=== PATIENT | female | born 1985 | race Two or more races ===

== ENCOUNTER → 2017-02-08 | Outpatient (CLI) | payer OTHER ==
[~2017-02-08] MED LIST: ACET50TA PO; IBUP80TA PO; VITAPRTA PO
--- NOTE | 2017-02-08 11:13 | REP ---
Clinical: Pain. Technique: AP, lateral, bilateral oblique and sunrise views right and left knee. Findings: The osseous structures and joint spaces are intact and normal. There is no evidence for acute fracture or dislocation. No joint effusion is appreciated. Surrounding soft tissues are unremarkable. No subcutaneous emphysema or radiodense foreign body. Impression: Normal, age-appropriate examination of the bilateral knees. No acute fracture or dislocation. No overt degenerative changes. Signed by Elia Cisneros MD 02/08/2017 11:04 A
== END ==
LOC: M RAD 10:32
PROVIDERS: ATTEND Family Medicine
DX: M25.561 Pain in right knee (principal); M25.562 Pain in left knee

== ENCOUNTER → 2017-02-08 | Outpatient (REF) | payer OTHER ==
[2017-02-08 11:47] LABS: FREE T4 0.73 NG/DL (0.76-1.46)
== END ==
LOC: M SFHCPLAZ 09:41
PROVIDERS: ATTEND Family Medicine
DX: M25.50 Pain in unspecified joint (principal); R63.5 Abnormal weight gain

== ENCOUNTER → 2017-03-01 | Outpatient (REF) | payer OTHER | LOC: M SFHCPLAZ 10:56 | PROVIDERS: ATTEND Family Medicine | DX: Z12.4 Encounter for screening for malignant neoplasm of cervix (principal) ==

== ENCOUNTER → 2017-03-06 | Outpatient (CLI) | payer OTHER ==
--- NOTE | 2017-03-07 02:41 | REP ---
Clinical: Soft tissue nodule. Technique: AP, lateral right tibia / fibula. Findings: The osseous structures and joint spaces are intact and normal. There is no evidence for acute fracture or dislocation. Surrounding soft tissues are unremarkable. No subcutaneous emphysema or radiodense foreign body. Impression: Normal examination. Signed by Elia Cisneros MD 03/07/2017 02:33 A
== END ==
LOC: M RAD 11:10
PROVIDERS: ATTEND Family Medicine
DX: L98.9 Disorder of the skin and subcutaneous tissue, unspecified (principal)

== ENCOUNTER → 2017-03-26 | Outpatient (CLI) | payer OTHER | LOC: M LAB 09:02 | PROVIDERS: ATTEND Family Medicine | DX: E03.9 Hypothyroidism, unspecified (principal) ==

== ENCOUNTER → 2017-05-17 | Outpatient (REF) | payer OTHER | LOC: M SFHCPLAZ 08:52 | PROVIDERS: ATTEND Family Medicine | DX: E03.9 Hypothyroidism, unspecified (principal) ==

== ENCOUNTER → 2017-05-19 | Outpatient (REF) | payer OTHER | LOC: M SFHCPLAZ 15:40 | PROVIDERS: ATTEND Family Medicine | DX: E03.9 Hypothyroidism, unspecified (principal) ==

== ENCOUNTER → 2017-08-03 | Outpatient (CLI) | payer OTHER ==
--- NOTE | 2017-08-03 14:35 | REP ---
Pelvic ultrasound including transabdominal and endovaginal ultrasound: The bladder is nondistended. The uterus is anteverted and normal size measuring 7.4-0.5 x 5.1 cm. The endometrium is not thickened measuring 2.9-9.2 mm. With the in the endometrium. There is a focal hypoechoic sharply circumscribed nodule like structure measuring 0.9 x 0.5 x 1.0 cm compatible with an endometrial polyp. This is in the body of the uterus. The right ovary measures 2.6 x 1.3 x 2.4 cm. The left ovary measures 2.7 x 3.4 x 2.3 cm. The ovaries are normal size. There is a 2.1 cm left ovarian cyst. Impression: There is a hypoechoic nodule like density in the endometrium, possibly an endometrial polyp in the body of the uterus. There is a 2.1 cm left ovarian cyst.
== END ==
LOC: M WHC 10:53
PROVIDERS: ATTEND Family Medicine
DX: N83.202 Unspecified ovarian cyst, left side (principal)

== ENCOUNTER → 2017-08-07 | Outpatient (REF) | payer OTHER | LOC: M LAB REF 13:19 | PROVIDERS: ATTEND Family Medicine | DX: L81.9 Disorder of pigmentation, unspecified (principal) ==

== ENCOUNTER → 2017-09-07 | Outpatient (CLI) | payer OTHER | LOC: M SLEEP HO 11:21 | PROVIDERS: ATTEND Nurse Practitioner Adult Health | DX: G47.30 Sleep apnea, unspecified (principal) ==

== ENCOUNTER → 2018-05-09 | Outpatient (REF) | payer OTHER ==
[2018-05-09 12:00] LABS: HEMATOCRIT 44.1 % (36.0-47.0); HEMOGLOBIN 14.6 g/dl (12.0-15.5); MEAN CORPUSCULAR HEMOGLOBIN 27.7 pg (27.0-33.0); MEAN CORPUSCULAR HGB CONC 33.1 g/dl (32.0-36.5); MEAN CORPUSCULAR VOLUME 83.7 fl (80.0-96.0); PLATELET COUNT, AUTOMATED 322 10^3/uL (150-450); RED BLOOD COUNT 5.27 10^6/uL (4.00-5.40); RED CELL DISTRIBUTION WIDTH 13.2 % (11.5-14.5); WHITE BLOOD COUNT 8.6 10^3/uL (4.0-10.0)
[2018-05-09 12:20] LABS: C REACTIVE PROTEIN QUANTITATIV < 0.30 MG/DL (0.00-0.30); FREE T4 1.38 NG/DL (0.76-1.46); THYROID STIMULATING HORMONE 0.009 uIU/ML (0.358-3.740)
[2018-05-09 13:11] LABS: ERYTHROCYTE SEDIMENTATION RATE 4 mm/hr (0-20)
[2018-05-09 14:18] LABS: ERYTHROCYTE SEDIMENTATION RATE 4 mm/hr (0-20)
== END ==
LOC: M SFHCPLAZ 09:23
DX: K64.4 Residual hemorrhoidal skin tags (principal); E03.9 Hypothyroidism, unspecified

== ENCOUNTER → 2018-08-28 | Outpatient (REF) | payer OTHER | LOC: M SFHCPLAZ 16:12 | DX: Z53.9 Procedure and treatment not carried out, unspecified reason (principal); E03.9 Hypothyroidism, unspecified; E55.9 Vitamin D deficiency, unspecified; K58.0 Irritable bowel syndrome with diarrhea ==

== ENCOUNTER → 2018-09-03 | Outpatient (REF) | payer OTHER ==
[2018-09-03 12:45] LABS: FREE T4 1.26 NG/DL (0.76-1.46); THYROID STIMULATING HORMONE 0.014 uIU/ML (0.358-3.740)
[2018-09-05 00:06] LABS: DEAMIDATED GLIADIN ABS, IgA 4 units (0-19); DEAMIDATED GLIADIN ABS, IgG 2 units (0-19); ENDOMYSIAL ANTIBODY IgA Negative (Negative); IMMUNOGLOBULIN A 177 mg/dL (87-352); t-TRANSGLUTAMINASE(tTG) IgA <2 U/mL (0-3); t-TRANSGLUTAMINASE(tTG) IgG <2 U/mL (0-5)
== END ==
LOC: M SFHCPLAZ 10:04
DX: E03.9 Hypothyroidism, unspecified (principal); E55.9 Vitamin D deficiency, unspecified; K58.0 Irritable bowel syndrome with diarrhea
CPT/HCPCS: 84443

== ENCOUNTER → 2018-10-29 | Outpatient (REF) | payer OTHER ==
[~2018-10-29] MED LIST changes: -ACET50TA PO; +MAPA500T2 PO
[2018-10-29 10:18] LABS: FREE T4 1.23 NG/DL (0.76-1.46); THYROID STIMULATING HORMONE 0.017 uIU/ML (0.358-3.740)
== END ==
LOC: M SFHCPLAZ 08:39
PROVIDERS: ATTEND Family Medicine
DX: E03.9 Hypothyroidism, unspecified (principal)

== ENCOUNTER → 2018-12-17 | Outpatient (REF) | payer MEDICAID | LOC: M SFHCPLAZ 15:29 | PROVIDERS: ATTEND Family Medicine | DX: E03.9 Hypothyroidism, unspecified (principal) ==

== ENCOUNTER → 2019-02-04 | Outpatient (REF) | payer MEDICAID | LOC: M SFHCPLAZ 09:11 | PROVIDERS: ATTEND Family Medicine | DX: E03.9 Hypothyroidism, unspecified (principal) ==

== ENCOUNTER → 2019-04-22 | Outpatient (REF) | payer OTHER | LOC: M SFHCPLAZ 08:25 | PROVIDERS: ATTEND Family Medicine | DX: E03.9 Hypothyroidism, unspecified (principal) ==

== ENCOUNTER → 2019-07-24 | Outpatient (REF) | payer OTHER | LOC: M SFHCPLAZ 11:10 | PROVIDERS: ATTEND Family Medicine | DX: E03.9 Hypothyroidism, unspecified (principal) ==

== ENCOUNTER → 2019-10-08 | Outpatient (CLI) | payer BC ==
[2019-10-08 14:05] LABS: FREE T4 0.93 NG/DL (0.76-1.46); THYROID STIMULATING HORMONE 5.76 uIU/ML (0.358-3.740)
== END ==
LOC: M PLALAB 10:15
PROVIDERS: ATTEND Family Medicine
DX: E03.9 Hypothyroidism, unspecified (principal)

== ENCOUNTER → 2020-01-29 | Outpatient (REF) | payer BC ==
[2020-01-29 15:52] LABS: FREE T4 1.1 NG/DL (0.76-1.46); THYROID STIMULATING HORMONE 6.95 uIU/ML (0.358-3.740)
== END ==
LOC: M PLALAB 13:14
PROVIDERS: ATTEND Family Medicine
DX: E03.9 Hypothyroidism, unspecified (principal)

== ENCOUNTER → 2020-07-30 | Outpatient (REF) | payer BC | LOC: M PLALAB 10:32 | PROVIDERS: ATTEND Family Medicine | DX: E03.9 Hypothyroidism, unspecified (principal) ==

== ENCOUNTER → 2020-10-01 | Outpatient (REF) | payer BC ==
[2020-10-01 15:58] LABS: FREE T4 1.43 NG/DL (0.76-1.46); THYROID STIMULATING HORMONE 2.77 uIU/ML (0.358-3.740)
== END ==
LOC: M SFHCPLAZ 11:44
PROVIDERS: ATTEND Family Medicine
DX: N92.3 Ovulation bleeding (principal)

== ENCOUNTER → 2020-10-06 | Outpatient (CLI) | payer BC ==
--- NOTE | 2020-10-06 21:17 | REP ---
INDICATION: N92.3 INTERMENSTRUAL BLEEDING COMPARISON: None. TECHNIQUE: Transabdominal pelvic ultrasound followed by transvaginal examination for better evaluation of the endometrium and adnexa with color Doppler evaluation of the ovaries. FINDINGS: Bladder is unremarkable and measures 7.5 x 7.8 x 5.7 cm. Normal anteverted uterus measures 7.4 x 3.6 x 4.4 cm. The endometrial complex measures 5.0 mm thickness. No discrete uterine or endometrial abnormalities are appreciated. Bilateral ovaries are normal in appearance and vascularity without evidence for torsion. Right ovary measures 2.5 x 1.5 x 1.7 cm; R I = 0.39. Left ovary measures 2.5 x 1.9 x 1.9 cm with 1.3 cm dominant follicle/physiologic cyst; R I = 0.47. No pelvic fluid or adnexal mass lesion IMPRESSION: Essentially normal pelvic ultrasound. 1.3 cm left dominant follicle noted. No torsion. <Electronically signed by Elia Cisneros > 10/06/20 [id number]
== END ==
LOC: M WHC 12:51
PROVIDERS: ATTEND Family Medicine
DX: N92.3 Ovulation bleeding (principal)

== ENCOUNTER → 2020-11-06 | Outpatient (REF) | payer BC ==
[2020-11-06 19:57] LABS: CHLAMYDIA DNA AMPLIFICATION NEGATIVE (NEGATIVE); GC DNA AMPLIFICATION NEGATIVE (NEGATIVE)
== END ==
LOC: M SFHCWAGY 16:43
PROVIDERS: ATTEND Nurse Practitioner Women's Health
DX: Z12.4 Encounter for screening for malignant neoplasm of cervix (principal); Z11.3 Encounter for screening for infections with a predominantly sexual mode of transmission
CPT/HCPCS: 87491; 87591; 87624; G0123

== ENCOUNTER → 2020-12-10 | Outpatient (REF) | payer BC ==
[2020-12-10 13:09] LABS: THYROID STIMULATING HORMONE 4.72 uIU/ML (0.358-3.740)
== END ==
LOC: M PLALAB 10:08
PROVIDERS: ATTEND Family Medicine
DX: E03.9 Hypothyroidism, unspecified (principal)

== ENCOUNTER → 2021-02-08 | Outpatient (REF) | payer BC ==
[2021-02-08 10:39] LABS: FREE T4 1.05 NG/DL (0.76-1.46); THYROID STIMULATING HORMONE 2.06 uIU/ML (0.358-3.740)
== END ==
LOC: M PLALAB 08:45
PROVIDERS: ATTEND Family Medicine
DX: E03.9 Hypothyroidism, unspecified (principal)

== ENCOUNTER → 2021-04-06 | Outpatient (CLI) | payer BC ==
[~2021-04-06] MED LIST changes: +KETO10TAB PO; +MACR100C43 PO; +NOXI1TAB PO; +SPIR50TA4 PO; +SYNT100T PO
== END ==
LOC: M PLALAB 13:50
PROVIDERS: ATTEND Family Medicine
DX: E03.9 Hypothyroidism, unspecified (principal)

== ENCOUNTER → 2021-05-10 | Outpatient (REF) | payer BC ==
[~2021-05-10] MED LIST changes: -KETO10TAB PO; -MACR100C43 PO; -NOXI1TAB PO; -SPIR50TA4 PO; -SYNT100T PO
== END ==
LOC: M SFHCWAGY 12:59
PROVIDERS: ATTEND Nurse Practitioner Women's Health
DX: N93.9 Abnormal uterine and vaginal bleeding, unspecified (principal)

== ENCOUNTER 2021-07-24 05:18 | Emergency (ER) | payer BC ==
[~2021-07-24] VITALS: Ht 165.1 cm; Wt 71.8 kg
[2021-07-24] MEDS ORDERED: NOXI1TAB PO (05:28)
[2021-07-24] MEDS ORDERED: SPIR50TA4 PO (05:28)
[2021-07-24] MEDS ORDERED: SYNT100T PO (05:28)
--- OUTSIDE RECORDS SUMMARY | 2021-07-24 05:28 | CCD ---
Author Author [facility] Organization [facility] Address Unknown Phone Unavailable Care Team Providers Care Stratigraphy Teacher Name Role Phone Casi Resendez Unavailable PROBLEMS Type Condition ICD9-CM Code DSK23-XJ Code Onset Dates Condition S tatus W/U Status Risk SNOMED Code Notes Problem Lactose intolerance E73.9 Active confirmed 961983644 Problem Hypothyroidism, unspecified type E03.9 Active conf irmed 30728827 Problem Seasonal allergies J30.2 Active confirmed 4 89309894 Problem Abnormal uterine bleeding N93.9 Active confirmed 97039432319689 Problem Irritable bowel syndrome with diarrhea K58.0 A ctive confirmed 909896315 Problem Vitamin D deficiency E55.9 Active confirmed 02723337 Problem Cigarette nicotine dependence without complication F17.210 Active confirmed 40247173 Problem Psychophysiological insomnia F51.04 Active confirme d 895660793 ALLERGIES No Known Allergies ENCOUNTERS from 1986 to 2021-04-28 Encounter Location Date Provider Diagnosis [address] [phone] [place] [address] 04 Apr, 2021 Casi Resendez IMMUNIZATIONS Vaccine Route Administration Date Status TDAP Unknown November 23, 2013 Administered Influenza 6mo & up Fluzone Unknown Jul 20, 2017 Refus ed SOCIAL HISTORY Tobacco Use: Social History Observation Description Date Details (start date - stop date) Current Smoker Sex Assigned At : Social History Observation Description Sex Assigned At Unknown Education: Question Answer Notes Level of Education: Finished High School Audit Question Answer Notes Interpretation: Alcohol Education Total Score: 0 Language: Question Answer Notes Languages spoken: Solomon Islander Yazdanism: Question Answer Notes Yazdanism 33 None Domestic Violence: Question Answer Notes Status: Sexual Hx: Question Answer Notes Had sex in the last 12 months (vaginal, oral, or anal)? Yes LMP: 02/07/2017 Have you ever had an STD? No Prevention Strategies discussed: Condoms with Men only Use protection? Yes How often? All of the time Drug and Alcohol Question Answer Notes Interpretation: No problems reported Total Score: 0 Alcohol Screening: Question Answer Notes Did you have a drink containing alcohol in the past year? Ye s Points 1 Interpretation Negative How often did you have six or more drinks on one occas ion in the past year? Never (0 points) How many drinks did you have on a typica l day when you were drinking in the past year? 1 or 2 (0 points) How often did you have a drink containing alcohol in t he past year? Monthly or less (1 point) BMI Care Goal Follow-Up Question Answer Notes Above Normal BMI Follow-Up Giving encouragement to exercise Tobacco Use: Question Answer Notes Are you a: current smoker Smoking Cessation Information Given 07/31/2019 Patient counseled on the dangers of tobacco use and urged to quit: 07/31/2019 How many cigarettes a day do you smoke? 6-10 Are you interested in quitting? Ready to quit Counseled the patient on tobacco use, cessation provided 02/2019 REASON FOR REFERRAL No Information VITAL SIGNS No information MEDICATIONS Medication SIG (Take, Route, Frequency, Duration) Notes Start Da te End Date Status Tretinoin 0.1 % 1 application (pea sized florina unt) in the evening Externally Once a day for 30 days Aug, Active Euthyrox 100 MCG 1 tablet in the morning on a n empty stomach Orally Once a day; CELIA for 90 day(s) Mar, Active Loperamide HCl 2 MG 1 tablet as needed Orally Daily for 30 Days Mar, Active Vitamin D 2000 UNIT 1 tablet Orally Once a day Active Levocetirizine Dihydrochloride 5 MG 1 tablet in the evening Oral ly Once a day Jul, Not-Taking Clindamycin Phosphate 1 % 1 application to face General Forecaster ally Once a day for 30 Days Aug, Not-Taking valACYclovir HCl 1 GM 2 tablet twice a day x 1 day as needed for cold sores Orally bid for 5 day(s) Jul, Active Chantix Continuing Month Frederic 1 MG as directed Orally 12 2020 Active Chantix Starting Month Frederic 0.5 MG X 11 & 1 MG X 42 as directed i ntravaginally Mar, Active PROCEDURES No Information RESULTS No Results REASON FOR VISIT synthroid MEDICAL (GENERAL) HISTORY Type Description Date Medical History Epilepsy in childhood - last seizure at age 3; she was dilantin until she was 9 y/o Medical History Hypothyroidism Medical History [employer] Medical History IBS, lactose intolerance Medical History Daytime fatigue - negative sleep study Surgical History T & A 1993 Surgical History T&A 1994 Hospitalization History Surgery related 1994 Hospitalization History Childbirth 2015 Goals Section No Information Health Concerns No Information MEDICAL EQUIPMENT No Information MENTAL STATUS No Information FUNCTIONAL STATUS No Information ASSESSMENTS No Information PLAN OF TREATMENT Next Appt Details Provider Name:Shantel Millerjac, 2021-05-10 09:45:00 AM, [address] [place] [address] , [place], [address], Provider Name:Maci Billings, 2021-05-17 11:00:00 AM, [address] [place] [address] , [place], [place], [facility] [phone] Provider Name:Casi Resendez, 2021-11-15 07:30:00 AM, [address] [place] [address] , [place], [address], Insurance Providers Payer Name Payer Address Payer Phone Insured Name Patient Relati onship to Insured Coverage Start Date Coverage End Date BCBS UTILIBBY CARTWRIGHT PPO [phone] [facility] [employer] CHRISTEL CARMICHAEL [place] [phone] KARLEY AMARAL self
--- OUTSIDE RECORDS SUMMARY | 2021-07-24 05:28 | CCD ---
Author Author [facility] Organization [facility] Address Unknown Phone Unavailable Care Team Providers Care Room Designer Name Role Phone Casi Resendez Unavailable PROBLEMS Type Condition ICD9-CM Code QCE11-QJ Code Onset Dates Condition S tatus W/U Status Risk SNOMED Code Notes Problem Lactose intolerance E73.9 Active confirmed 463901098 Problem Hypothyroidism, unspecified type E03.9 Active conf irmed 01843873 Problem Irritable bowel syndrome with diarrhea K58.0 A ctive confirmed 970410221 Problem Abnormal uterine bleeding N93.9 Active confirmed 08170583965438 Problem Abnormal uterine bleeding (AUB) N93.9 Active confirmed 50200041096145 Problem Vitamin D deficiency E55.9 Active confirmed 85380259 Problem Cigarette nicotine dependence without complication F17.210 Active confirmed 70114930 Problem Psychophysiological insomnia F51.04 Active confirme d 881083618 Problem Seasonal allergies J30.2 Active confirmed 4 52869827 ALLERGIES No Known Allergies ENCOUNTERS from 1986 to 2021-05-19 Encounter Location Date Provider Diagnosis [address] [phone] [place] [address] Apr, Casi Resendez IMMUNIZATIONS Vaccine Route Administration Date [...] Finished High School Audit Question Answer Notes Total Score: 0 Interpretation: Alcohol Education Language: Question Answer Notes Languages spoken: Nauruan Congregational: Question Answer Notes Congregational 33 None Domestic Violence: Question Answer Notes Status: Sexual Hx: Question Answer Notes Had sex in the last 12 months (vaginal, oral, or anal)? Yes LMP: 02/07/2017 Have you ever had an STD? No Prevention Strategies discussed: Condoms with Men only Use protection? Yes How often? All of the time Drug and Alcohol Question Answer Notes Total Score: 0 Interpretation: No problems reported Alcohol Screening: Question Answer Notes Did you [...] Notes Start Da te End Date Status Spironolactone 50 MG 1 tablet Orally Once a day for 30 day(s) Apr, Active Loperamide HCl 2 MG 1 tablet as needed Orally Daily for 30 Days Mar, Active Euthyrox 100 MCG 1 tablet in the morning on a n empty stomach Orally Once a day; CELIA for 90 day(s) Mar, Active Levocetirizine Dihydrochloride 5 MG 1 tablet in the evening Oral ly Once a day Jul, Not-Taking Clindamycin Phosphate 1 % 1 application to face Dobie Man ally Once a day for 30 Days Aug, Not-Taking Chantix Starting Month Frederic 0.5 MG X 11 & 1 MG X 42 as directed i ntravaginally Mar, Active Tretinoin 0.1 % 1 application (pea sized florina unt) in the evening Externally Once a day Aug, Active valACYclovir HCl 1 GM 2 tablet twice a day x 1 day as needed for cold sores Orally bid for 5 day(s) Jul, Active Vitamin D 2000 UNIT 1 tablet Orally Once a day Active Chantix Continuing Month Frederic 1 MG as directed Orally 2020 Active PROCEDURES No Information RESULTS No Results [...] History Surgery related 1994 Hospitalization History Childbirth 2014 Goals Section No Information Health Concerns No Information MEDICAL EQUIPMENT No Information MENTAL STATUS No Information FUNCTIONAL STATUS No Information ASSESSMENTS No Information PLAN OF TREATMENT Medication Medication Name Sig Start Date Stop Date Tretinoin 0.1 % 1 application (pea sized florina unt) in the evening Externally Once a day Aug, Spironolactone 50 MG 1 tablet Orally Once a day for 30 day(s) Apr, Next Appt Details Provider Name:Maci Billings, 2021-09-06 11:30:00 AM, [address] [place] [address], , [place], [address], Provider Name:Casi Resendez, 2021-11-15 07:30:00 AM, [facility] [place] [place], , [place], [address], Insurance Providers Payer Name Payer Address Payer Phone Insured Name Patient Relati onship to Insured Coverage Start Date Coverage End Date BCBS [place] WATN PPO [phone] [facility] [employer] [place] [address] KARLEY AMARAL self
--- OUTSIDE RECORDS SUMMARY | 2021-07-24 05:28 | CCD ---
Author Author [facility] Organization [facility] Address Unknown Phone Unavailable Care Team Providers Care Radiology Aide Name Role Phone Casi Resendez Unavailable PROBLEMS Type Condition ICD9-CM Code NGA56-CO Code Onset Dates Condition S tatus W/U Status Risk SNOMED Code Notes Problem Lactose intolerance E73.9 Active confirmed 478160548 Problem Hypothyroidism, unspecified type E03.9 Active conf irmed 98754948 Problem Irritable bowel syndrome with diarrhea K58.0 A ctive confirmed 862970686 Problem Abnormal uterine bleeding N93.9 Active confirmed 07494418241403 Problem Abnormal uterine bleeding (AUB) N93.9 Active confirmed 13957090493810 Problem Vitamin D deficiency E55.9 Active confirmed 56767124 Problem Cigarette nicotine dependence without complication F17.210 Active confirmed 06737989 Problem Psychophysiological insomnia F51.04 Active confirme d 245050346 Problem Seasonal allergies J30.2 Active confirmed 4 42673973 ALLERGIES No Known Allergies ENCOUNTERS from 1986 to 2021-06-02 Encounter Location Date Provider Diagnosis [address] [phone] [place] [address] 08 May, 2021 Casi Resendez IMMUNIZATIONS Vaccine Route Administration [...] Education Language: Question Answer Notes Languages spoken: Macedonian Nondenominational: Question Answer Notes Nondenominational 33 None Domestic Violence: Question Answer Notes [...] day; CELIA for 90 day(s) Mar, Active Synthroid 100 MCG 1 tablet in the morning on a n empty stomach Orally Once a day; CELIA for 90 day(s) May, Active Levocetirizine Dihydrochloride 5 MG 1 tablet in the evening Oral ly Once a day Jul, Not-Taking Clindamycin Phosphate 1 % 1 application to face Customer Care Voice Consultant ally Once a day for 30 Days [...] Frederic 1 MG as directed Orally 12 Ju 2020 Active PROCEDURES No Information RESULTS No [...] Once a day for 30 day(s) Apr, Synthroid 100 MCG 1 tablet in the morning on a n empty stomach Orally Once a day; CELIA for 90 day(s) May, Next Appt Details Provider Name:Maci Billings, 2021-09-06 11:30:00 AM, [address] [facility], , [place], [address], Provider Name:Casi Resendez, 2021-11-15 07:30:00 AM, [address] [facility], , [place], [address], Insurance Providers Payer Name Payer Address Payer Phone Insured Name Patient Relati onship to Insured Coverage Start Date Coverage End Date BCBILL CARTWRIGHT PPO [phone] [facility] eigital [facility] CHRISTEL CARMICHAEL [facility] [id number] KARLEY AMARAL self
--- OUTSIDE RECORDS SUMMARY | 2021-07-24 05:28 | CCD ---
Author Author [facility] Organization [facility] Address Unknown Phone Unavailable Care Team Providers Care Rack Maker Name Role Phone Maci Billings Unavailable PROBLEMS Type Condition ICD9-CM Code KMI90-WG Code Onset Dates Condition S tatus W/U Status Risk SNOMED Code Notes Problem Lactose intolerance E73.9 Active confirmed 850835643 Problem Hypothyroidism, unspecified type E03.9 Active conf irmed 35789122 Problem Irritable bowel syndrome with diarrhea K58.0 A ctive confirmed 068500249 Problem Abnormal uterine bleeding N93.9 Active confirmed 13191344141519 Problem Abnormal uterine bleeding (AUB) N93.9 Active confirmed 92478856680662 Problem Vitamin D deficiency E55.9 Active confirmed 62834158 Problem Cigarette nicotine dependence without complication F17.210 Active confirmed 06206975 Problem Psychophysiological insomnia F51.04 Active confirme d 409310764 Problem Seasonal allergies J30.2 Active confirmed 4 16247958 ALLERGIES No Known Allergies ENCOUNTERS from 1986 to 2021-05-19 Encounter [facility] Date [facility] [address] [facility] [place] [address] Apr, Maci Billings Acne vulgaris L70.0 IMMUNIZATIONS Vaccine Route Administration Date Status TDAP [...] Education Language: Question Answer Notes Languages spoken: Luxembourger Synagogue: Question Answer Notes Synagogue 33 None Domestic Violence: Question Answer Notes [...] REASON FOR REFERRAL No Information VITAL SIGNS Weight 160.4 lbs Apr, Weight-kg 72.76 kg Apr, Height 64 in Apr, BMI 27.53 kg/m2 Apr, Blood pressure systolic 116 mm Hg Apr, Blood pressure diastolic 80 mm Hg Apr, MEDICATIONS Medication SIG (Take, Route, Frequency, Duration) [...] Phosphate 1 % 1 application to face Scarf Gluer ally Once a day for 30 Days [...] Information RESULTS No Results REASON FOR VISIT 6-8 Month acne follow up MEDICAL (GENERAL) HISTORY Type Description Date Medical [...] No Information FUNCTIONAL STATUS No Information ASSESSMENTS Encounter Date Diagnosis Assessment Notes Treatment Notes Treatm ent Clinical Notes Apr, Acne vulgaris (ICD-10 - L70.0) Spironolactone risks. Patient counseled about risks of therapy with spironolactone, including frequent urination, unsteadiness, headache, enlarged or painful breasts , irregular menstrual periods, vaginal bleeding in post- menopausal women, hyperkalemia. Patient does not have any underlying kidney disorders. Patient was informed that spironolactone is category C and has the potential for adversely affecting sex differentiation of the male during embryogenesis. PLAN OF TREATMENT Medication Medication Name Sig Start Date Stop Date Tretinoin 0.1 % 1 application (pea sized florina unt) in the evening Externally Once a day Aug, Spironolactone 50 MG 1 tablet Orally Once a day for 30 day(s) Apr, Treatment Notes Assessment Notes Clinical Notes Acne vulgaris Spironolactone risks . Patient counseled about risks of therapy with spironolactone, including frequent urination, unsteadiness, headache, enlarged or painful breasts , irregular menstrual periods, vaginal bleeding in post-menopausal women, hyperkalemia. Patient does not have any underlying kidney disorders. Patient was informed that spironolactone is category C and has the potential for adversely affecting sex differentiation of the male during embryogenesis. Next Appt Details 3-6 Months Reason:oily skin/acne f/u Provider Name:Maci Billings, 2021-09-06 11:30:00 AM, [address] [facility], , [place], [address], Provider Name:Casi Resendez, 2021-11-15 07:30:00 AM, [facility] [facility], , [place], [address], Follow Up:3-6 Monthsoily skin/acne f/u Insurance Providers Payer Name Payer Address Payer Phone Insured Name Patient Relati onship to Insured Coverage Start Date Coverage End Date [facility] [phone] [facility] [place] [address] KARLEY AMARAL self
--- OUTSIDE RECORDS SUMMARY | 2021-07-24 05:28 | CCD ---
Author Author [facility] Organization [facility] Address Unknown Phone Unavailable Care Team Providers Care Shop Laborer Name Role Phone Shantel Thomson Unavailable PROBLEMS Type Condition ICD9-CM Code MIX40-SV Code Onset Dates Condition S tatus W/U Status Risk SNOMED Code Notes Problem Lactose intolerance E73.9 Active confirmed 631300416 Problem Hypothyroidism, unspecified type E03.9 Active conf irmed 82361216 Problem Irritable bowel syndrome with diarrhea K58.0 A ctive confirmed 638136612 Problem Abnormal uterine bleeding N93.9 Active confirmed 10111334593195 Problem Abnormal uterine bleeding (AUB) N93.9 Active confirmed 06905150209703 Problem Vitamin D deficiency E55.9 Active confirmed 08662289 Problem Cigarette nicotine dependence without complication F17.210 Active confirmed 13293676 Problem Psychophysiological insomnia F51.04 Active confirme d 526801911 Problem Seasonal allergies J30.2 Active confirmed 4 18197780 ALLERGIES No Known Allergies ENCOUNTERS from 1986 to 2021-05-11 Encounter Location Date Provider Diagnosis [facility] [address] [facility] [phone] [place] [address] 16 Apr, 2021 Shantel Thomson Abnormal uterine ble eding (AUB) N93.9 and Negative test Z32.02 IMMUNIZATIONS Vaccine Route Administration Date Status TDAP [...] Education Language: Question Answer Notes Languages spoken: Azeri Adventist: Question Answer Notes Adventist 33 None Domestic Violence: Question Answer Notes [...] FOR REFERRAL No Information VITAL SIGNS Weight 156 lbs Apr, Weight-kg 70.76 kg Apr, Height 64 in Apr, BMI 26.77 kg/m2 Apr, Blood pressure systolic 118 mm Hg Apr, Blood pressure diastolic 82 mm Hg Apr, MEDICATIONS Medication SIG (Take, Route, Frequency, Duration) Notes Start Da te End Date Status Vitamin D 2000 UNIT 1 tablet Orally Once a day Active Euthyrox 100 MCG 1 tablet in the morning on a n empty stomach Orally Once a day; CELIA for 90 day(s) Mar, Active Clindamycin Phosphate 1 % 1 application to face Quarry Boss ally Once a day for 30 Days Aug, Not-Taking Tretinoin 0.1 % 1 application (pea sized florina unt) in the evening Externally Once a day for 30 days Aug, Active Loperamide HCl 2 MG 1 tablet as needed Orally Daily for 30 Days Mar, Active Chantix Continuing Month Frederic 1 MG as directed Orally 2020 Active Chantix Starting Month Frederic 0.5 MG X 11 & 1 MG X 42 as directed i ntravaginally Mar, Active valACYclovir HCl 1 GM 2 tablet twice a day x 1 day as needed for cold sores Orally bid for 5 day(s) Jul, Active Levocetirizine Dihydrochloride 5 MG 1 tablet in the evening Oral ly Once a day Jul, Not-Taking PROCEDURES No Information RESULTS No Results REASON FOR VISIT uterine biospy MEDICAL (GENERAL) HISTORY Type Description Date Medical [...] Treatment Notes Treatm ent Clinical Notes Apr, Abnormal uterine bleeding (AUB) (ICD-10 - N93.9) Apr, Negative test (ICD-10 - Z32.02) PLAN OF TREATMENT Treatment Notes Test Name Order Date Test, Urine 2021-05-10 Pathology Request For Service 2021-05-10 Next Appt Details prn Reason:f/u per pathology Provider Name:Maci Billings, 2021-05-17 11:00:00 AM, [address] [facility], , [place], [address], Provider Name:Casi Resendez, 2021-11-15 07:30:00 AM, [address] [facility], , [place], [address], Follow Up:prnf/u per pathology Insurance Providers Payer Name Payer Address Payer Phone Insured Name Patient Relati onship to Insured Coverage Start Date Coverage End Date MARIELA CARTWRIGHT O [phone] [place]IBBY [place] [id number] KARLEY AMARAL self
--- OUTSIDE RECORDS SUMMARY | 2021-07-24 05:28 | CCD ---
Author Author [facility] Organization [facility] Address Unknown Phone Unavailable Care Team Providers Care Maintenance Controller Name Role Phone Shantel Thomson Unavailable PROBLEMS Type Condition ICD9-CM Code [id number]-NS Code Onset Dates Condition S tatus W/U Status Risk SNOMED Code Notes Problem Lactose intolerance E73.9 Active confirmed 563829805 Problem Hypothyroidism, unspecified type E03.9 Active conf irmed 77356045 Problem Irritable bowel syndrome with diarrhea K58.0 A ctive confirmed 400262216 Problem Abnormal uterine bleeding N93.9 Active confirmed 16074579070628 Problem Abnormal uterine bleeding (AUB) N93.9 Active confirmed 34609619456287 Problem Vitamin D deficiency E55.9 Active confirmed 03423465 Problem Cigarette nicotine dependence without complication F17.210 Active confirmed 51886321 Problem Psychophysiological insomnia F51.04 Active confirme d 221109489 Problem Seasonal allergies J30.2 Active confirmed 4 [id number] ALLERGIES No Known Allergies ENCOUNTERS from 1986 to 2021-05-20 Encounter Location Date Provider Diagnosis [facility] [address] [facility] [phone] [place] [address] Apr, Shantel Thomson IMMUNIZATIONS Vaccine Route Administration Date Status TDAP [...] Education Language: Question Answer Notes Languages spoken: Estonian Alevism: Question Answer Notes Alevism 33 None Domestic Violence: Question Answer Notes [...] Phosphate 1 % 1 application to face Client Advisor ally Once a day for 30 Days [...] Information RESULTS No Results REASON FOR VISIT negative results MEDICAL (GENERAL) HISTORY Type Description Date Medical [...] Provider Name:Maci Billings, 2021-09-06 11:30:00 AM, [address] [facility], , [place], [place], [facility] [phone] Provider Name:Casi Resendez, 2021-11-15 07:30:00 AM, [address] [facility] [phone], [place], [address] Insurance Providers Payer Name Payer Address Payer Phone Insured Name Patient Relati onship to Insured Coverage Start Date Coverage End Date BCBS [place] [facility] [phone] [id number] [place] [address] KARLEY AMARAL self
--- OUTSIDE RECORDS SUMMARY | 2021-07-24 05:28 | CCD ---
Author Author [facility] Organization [facility] Address Unknown Phone Unavailable Care Team Providers Care Hospital Educator Name Role Phone Berto Shantel Unavailable PROBLEMS Type Condition ICD9-CM Code [id number] Code Onset Dates Condition S tatus W/U Status Risk SNOMED Code Notes Problem Lactose intolerance E73.9 Active confirmed 761374917 Problem Hypothyroidism, unspecified type E03.9 Active conf irmed 42185600 Problem Seasonal allergies J30.2 Active confirmed 4 27514446 Problem Abnormal uterine bleeding N93.9 Active confirmed 91383487738968 Problem Irritable bowel syndrome with diarrhea K58.0 A ctive confirmed 477473330 Problem Vitamin D deficiency E55.9 Active confirmed 53144310 Problem Cigarette nicotine dependence without complication F17.210 Active confirmed 22750624 Problem Psychophysiological insomnia F51.04 Active confirme d [id number] ALLERGIES No Known Allergies ENCOUNTERS from 1986 to 2021-04-28 Encounter Location Date Provider Diagnosis [facility] [address] [place] [phone] [place] [address] Apr, Shantel Thomson Abnormal uterine ble eding (AUB) N93.9 IMMUNIZATIONS Vaccine Route Administration Date Status TDAP [...] Education Language: Question Answer Notes Languages spoken: Yi Denominational: Question Answer Notes Denominational 33 None Domestic Violence: Question Answer Notes [...] FOR REFERRAL No Information VITAL SIGNS Weight 158.2 lbs Apr, Height 64 in Apr, BMI 27.15 kg/m2 Apr, Blood pressure systolic 122 mm Hg Apr, Blood pressure diastolic 80 [...] Phosphate 1 % 1 application to face Security Technician ally Once a day for 30 Days [...] Information RESULTS No Results REASON FOR VISIT FREQUENT CYCLES MEDICAL (GENERAL) HISTORY Type Description Date Medical [...] Abnormal uterine bleeding (AUB) (ICD-10 - N93.9) AUB differential includes immaturity of HPO [place] (common with teens), cervical polyp, endometrial polyps, uterine fibroids, adenomyosis, uterine, ovarian, or cervical malignancy, infection such as chlamydia and/or gonorrhea, and symptoms of including SAB, MAB, or ectopic. If not menopausal, will rule out . Imaging and labs to be ordered as appropriate. Treatment options are tailored to the cause of AUB. Recommend pt to schedule for embx. we then discussed use of Mirena PLAN OF TREATMENT Treatment Notes Assessment Notes Clinical Notes Abnormal uterine bleeding (AUB) AUB diff erential includes immaturity of HPO [place] (common with teens), cervical polyp, endometrial polyps, uterine fibroids, adenomyosis, uterine, ovarian, or cervical malignancy, infection such as chlam ydia and/or gonorrhea, and symptoms of including SAB, MAB, or ectopic. If not menopausal, will rule out . Imaging and labs to be ordered as appropriate. Treatment options are tailored to the cause of AUB.Recommend pt to schedule for embx. we then discussed use of Mirena Next Appt Details 1-2 weeks Reason:embx Provider Name:Shantel Thomson, 2021-05-10 09:45:00 AM, [address] [place] [address], , [place], [address], Provider Name:Maci Billings, 2021-05-17 11:00:00 AM, [address] [facility], , [place], [address], Provider Name:Casi Resendez, 2021-11-15 07:30:00 AM, [address] [place] [address], , [place], [address], Follow Up:1-2 weeksembx Insurance Providers Payer Name Payer Address Payer Phone Insured Name Patient Relati onship to Insured Coverage Start Date Coverage End Date BCBS [employer] PPO [phone] [facility] [place] [facility] [place] [address] KARLEY AMARAL self
--- OUTSIDE RECORDS SUMMARY | 2021-07-24 05:28 | CCD ---
Author Author [facility] Address Unknown Phone Unavailable Support Name Relationship Address Phone [place] [address] [place] [address] UE Next Of Kin Unknown Unavailable J[place] [address] KACY VILLAGOMEZ Next Of Kin [address] [place] [address] [place] [address] HERNANDO WOODRUFF Next Of Kin [address] [place] [address] CAMIL[place] [address] Zaynab [place] [address] Jorge Luis Amaral ECON [address] [place] [address] Unavailable NishRicki campos ECON [address] [place] [address] Unavailable Re-disclosure Warning The records that you are about to access may contain information from federally-assisted alcohol or drug abuse programs. If such information is present, then the following federally mandated warning applies: This information has been disclosed to you from records protected by federal confidentiality rules (42 CFR part 2). The federal rules prohibit you from making any further disclosure of this information unless further disclosure is expressly permitted by the written consent of the person to whom it pertains or as otherwise permitted by 42 CFR part 2. A general authorization for the release of medical or other information is NOT sufficient for this purpose. The Federal rules restrict any use of the information to criminally investigate or prosecute any alcohol or drug abuse patient.The records that you are about to access may contain highly sensitive health information, the redisclosure of which is protected by Article 27-F of the [facility] Public Health law. If you continue you may have access to information: Regarding HIV / AIDS; Provided by facilities licensed or operated by the [facility] Office of Mental Health; or Provided by the [facility] Office for People With Developmental Disabilities. If such information is present, then the following [facility] mandated warning applies: This information has been disclosed to you from confidential records which are protected by state law. State law prohibits you from making any further disclosure of this information without the specific written consent of the person to whom it pertains, or as otherwise permitted by law. Any unauthorized further disclosure in violation of state law may result in a fine or fdc sentence or both. A general authorization for the release of medical or other information is NOT sufficient authorization for further disc losure. Family History Family Member Name Family Member Gender Family Member Status Date o f Status Description Data Source(s) Unknown Unknown Problem [facility] ([facility] Father's parents Encounters Encounter Providers Location Date Indications Data Source(s ) Unknown [address] [facility] [id number] 06/02/2021 12:00:00 AM EDT eCW1 ([facility]) Unknown [address] [facility] [address] 05/19/2021 12:00:00 AM EDT eCW1 ([facility]) Outpatient [address] [facility] [address] 05/17/2021 12:00:00 AM EDT eCW1 ([facility]) Unknown [address] [facility] [id number] 05/17/2021 12:00:00 AM EDT eCW1 ([facility]) ([facility] PROC) [facility] Procedure [address] [place] [address] 05/10/2021 12:00:00 AM EDT eCW1 ([facility]) Outpatient [address] [facility] [id number] 04/28/2021 12:00:00 AM EDT eCW1 ([facility]) [place] [address] [facility] [address] 04/28/2021 12:00:00 AM EDT eCW1 ([facility]) [place] [address] [facility] [address] 04/20/2021 12:00:00 AM EDT eCW1 ([facility]) [place] [address] [facility] [address] 04/17/2021 12:00:00 AM EDT eCW1 ([facility]) [place] [address] [facility] [place] [address] 04/15/2021 12:00:00 AM EDT eCW1 ([facility]) [place] [address] [facility] [address] 04/07/2021 12:00:00 AM EDT eCW1 ([facility]) [place] [address] [facility] [place] [address] 03/30/2021 12:00:00 AM EDT eCW1 ([facility]) [place] [address] [facility] [place] [address] 03/28/2021 12:00:00 AM EDT eCW1 ([facility]) [place] [address] [facility] [place] [address] 02/11/2021 12:00:00 AM EDT eCW1 ([facility]) [place] [address] [facility] [place] [address] 01/25/2021 12:00:00 AM EDT eCW1 ([facility]) [place] [address] [facility] [address] 12/23/2020 12:00:00 AM EDT eCW1 ([facility]) [place] [address] [facility] [address] 12/10/2020 12:00:00 AM EDT eCW1 ([facility]) [place] [address] [facility] [place] [address] 11/30/2020 12:00:00 AM EST eCW1 ([facility]) [place] [address] [facility] [address] 11/16/2020 12:00:00 AM EST eCW1 ([facility]) [place] [address] [facility] [place] [address] 11/06/2020 12:00:00 AM EST eCW1 ([facility]) [place] [address] [facility] [address] 2020 12:00:00 AM EST eCW1 ([facility]) [place] [address] [facility] [place] [address] 10/01/2020 12:00:00 AM EST eCW1 ([facility]) [place] [address] [facility] [place] [address] 09/30/2020 12:00:00 AM EST eCW1 ([facility]) [place] [address] [facility] [address] 09/10/2020 12:00:00 AM EST eCW1 ([facility]) [place] [address] [facility] [place] [address] 07/30/2020 12:00:00 AM EST eCW1 ([facility]) [place] [address] [facility] [place] [address] 07/30/2020 12:00:00 AM EST eCW1 ([facility]) [place] [address] [facility] [place] [address] 07/30/2020 12:00:00 AM EST eCW1 ([facility]) [place] [address] [facility] [place] [address] 07/07/2020 12:00:00 AM EDT eCW1 ([facility]) [place] [address] [facility] [place] [address] 07/06/2020 12:00:00 AM EDT eCW1 ([facility]) Immunizations Vaccine Date Status Description Data Source(s) COVID-19 VACC, MRNA(PFIZER)/PF 06/12/2021 12:00:00 AM EDT completed [facility] COVID-19 VACCINE Pfizer 06/12/2021 12:00:00 AM EDT completed [facility] Vaccine Series Complete: YESThis Data wa s Submitted to [facility] Via [employer]. COVID-19 VACC, MRNA(PFIZER)/PF 05/22/2021 12:00:00 AM EDT completed [facility] COVID-19 VACCINE Pfizer 05/22/2021 12:00:00 AM EDT completed [facility] Vaccine Series Complete: NOThis Data was Submitted to [facility] [employer]. Medications Medication Brand Name Start Date Product Form Dose Route Admi nistrative Instructions Pharmacy Instructions Status Indications Reaction Description Data Source(s) Levothyroxine Sodium 0.1 MG Oral Tablet [Synthroid] Sy nthroid 100 MCG Synthroid 100 MCG 06/02/2021 12:00:00 AM EDT active Synthroid 100 MCG eCW1 ([facility]) 50 mg 05/17/2021 12:00:00 AM EDT tablet 30 TAKE ONE TABLET BY MOUTH EVERY DAY TAKE ONE TABLET BY MOUTH EVERY DAY SOLD: 07/16/2021 [facility] Spironolactone 50 MG Oral Tablet Spironolactone 50 MG 2020 12:00:00 AM EDT 1.0 {tablet} active Spironolact one 50 MG eCW1 ([facility]) Spironolactone 50 MG Oral Tablet Spironolactone 50 MG 2020 12:00:00 AM EDT 1.0 {tablet} active Spironolact one 50 MG eCW1 ([facility]) Spironolactone 50 MG Oral Tablet Spironolactone 50 MG 2020 12:00:00 AM EDT 1.0 {tablet} active Spironolact one 50 MG eCW1 ([facility]) Spironolactone 50 MG Oral Tablet Spironolactone 50 MG 2020 12:00:00 AM EDT 1.0 {tablet} active Spironolact one 50 MG eCW1 ([facility]) 50 mg 05/17/2021 12:00:00 AM EDT tablet 30 TAKE ONE TABLET BY MOUTH EVERY DAY TAKE ONE TABLET BY MOUTH EVERY DAY SOLD: 05/17/2021 [facility] 50 mg 05/17/2021 12:00:00 AM EDT tablet 30 TAKE ONE TABLET BY MOUTH EVERY DAY TAKE ONE TABLET BY MOUTH EVERY DAY SOLD: 06/17/2021 [facility] Levothyroxine Sodium 0.1 MG Oral Tablet [Euthyrox] Eut hyrox 100 MCG Euthyrox 100 MCG 04/21/2021 12:00:00 AM EDT active Euthyrox 100 MCG eCW1 ([facility]) Levothyroxine Sodium 0.1 MG Oral Tablet [Euthyrox] Eut hyrox 100 MCG Euthyrox 100 MCG 04/21/2021 12:00:00 AM EDT active Euthyrox 100 MCG eCW1 ([facility]) Levothyroxine Sodium 0.1 MG Oral Tablet [Euthyrox] Eut hyrox 100 MCG Euthyrox 100 MCG 04/21/2021 12:00:00 AM EDT active Euthyrox 100 MCG eCW1 ([facility]) Levothyroxine Sodium 0.1 MG Oral Tablet [Euthyrox] Eut hyrox 100 MCG Euthyrox 100 MCG 04/21/2021 12:00:00 AM EDT active Euthyrox 100 MCG eCW1 ([facility]) Levothyroxine Sodium 0.1 MG Oral Tablet [Euthyrox] Eut hyrox 100 MCG Euthyrox 100 MCG 04/21/2021 12:00:00 AM EDT active Euthyrox 100 MCG eCW1 ([facility]) Levothyroxine Sodium 0.1 MG Oral Tablet [Euthyrox] Eut hyrox 100 MCG Euthyrox 100 MCG 04/21/2021 12:00:00 AM EDT active Euthyrox 100 MCG eCW1 ([facility]) Levothyroxine Sodium 0.1 MG Oral Tablet [Euthyrox] Eut hyrox 100 MCG Euthyrox 100 MCG 04/21/2021 12:00:00 AM EDT active Euthyrox 100 MCG eCW1 ([facility]) Levothyroxine Sodium 0.1 MG Oral Tablet [Euthyrox] Eut hyrox 100 MCG Euthyrox 100 MCG 04/21/2021 12:00:00 AM EDT active Euthyrox 100 MCG eCW1 ([facility]) Loperamide Hydrochloride 2 MG Oral Tablet Loperamide H Cl 2 MG Loperamide HCl 2 MG 04/15/2021 12:00:00 AM EDT 1.0 {tablet_as_needed} active Loperamide HCl 2 MG eCW1 ([facility]) Loperamide Hydrochloride 2 MG Oral Tablet Loperamide H Cl 2 MG Loperamide HCl 2 MG 04/15/2021 12:00:00 AM EDT 1.0 {tablet_as_needed} active Loperamide HCl 2 MG eCW1 ([facility]) Chantix Starting Month Frederic 0.5 MG X 11 & 1 MG X 42 Peggy ntix Starting Month Frederic 0.5 MG X 11 & 1 MG X 42 04/15/2021 12:00:00 AM EDT active Chantix Starting Month Frederic 0.5 MG X 11 & 1 MG X 42 eCW1 ([facility]) Loperamide Hydrochloride 2 MG Oral Tablet Loperamide H Cl 2 MG Loperamide HCl 2 MG 04/15/2021 12:00:00 AM EDT 1.0 {tablet_as_needed} active Loperamide HCl 2 MG eCW1 ([facility]) Loperamide Hydrochloride 2 MG Oral Tablet Loperamide H Cl 2 MG Loperamide HCl 2 MG 04/15/2021 12:00:00 AM EDT 1.0 {tablet_as_needed} active Loperamide HCl 2 MG eCW1 ([facility]) Chantix Starting Month Frederic 0.5 MG X 11 & 1 MG X 42 Peggy ntix Starting Month Frederic 0.5 MG X 11 & 1 MG X 42 04/15/2021 12:00:00 AM EDT active Chantix Starting Month Frederic 0.5 MG X 11 & 1 MG X 42 eCW1 ([facility]) Chantix Starting Month Frederic 0.5 MG X 11 & 1 MG X 42 Peggy ntix Starting Month Frederic 0.5 MG X 11 & 1 MG X 42 04/15/2021 12:00:00 AM EDT active Chantix Starting Month Frederic 0.5 MG X 11 & 1 MG X 42 eCW1 ([facility]) Chantix Starting Month Frederic 0.5 MG X 11 & 1 MG X 42 Peggy ntix Starting Month Frederic 0.5 MG X 11 & 1 MG X 42 04/15/2021 12:00:00 AM EDT active Chantix Starting Month Frederic 0.5 MG X 11 & 1 MG X 42 eCW1 ([facility]) Loperamide Hydrochloride 2 MG Oral Tablet Loperamide H Cl 2 MG Loperamide HCl 2 MG 04/15/2021 12:00:00 AM EDT 1.0 {tablet_as_needed} active Loperamide HCl 2 MG eCW1 ([facility]) Loperamide Hydrochloride 2 MG Oral Tablet Loperamide H Cl 2 MG Loperamide HCl 2 MG 04/15/2021 12:00:00 AM EDT 1.0 {tablet_as_needed} active Loperamide HCl 2 MG eCW1 ([facility]) Levothyroxine Sodium 0.1 MG Oral Tablet [Synthroid] Sy nthroid 100 MCG Synthroid 100 MCG 04/15/2021 12:00:00 AM EDT active Synthroid 100 MCG eCW1 ([facility]) 2 mg 04/15/2021 12:00:00 AM EDT tablet 30 TAKE ONE TABLET BY MOUTH EVERY DAY NEEDED TAKE ONE TABLET BY MOUTH EVERY DAY NEEDED SOLD: 04/22/2021 [facility] Loperamide Hydrochloride 2 MG Oral Tablet Loperamide H Cl 2 MG Loperamide HCl 2 MG 04/15/2021 12:00:00 AM EDT 1.0 {tablet_as_needed} active Loperamide HCl 2 MG eCW1 ([facility]) Chantix Starting Month Frederic 0.5 MG X 11 & 1 MG X 42 Peggy ntix Starting Month Frederic 0.5 MG X 11 & 1 MG X 42 04/15/2021 12:00:00 AM EDT active Chantix Starting Month Frederic 0.5 MG X 11 & 1 MG X 42 eCW1 ([facility]) Levothyroxine Sodium 0.1 MG Oral Tablet [Synthroid] Sy nthroid 100 MCG Synthroid 100 MCG 04/15/2021 12:00:00 AM EDT active Synthroid 100 MCG eCW1 ([facility]) Chantix Starting Month Frederic 0.5 MG X 11 & 1 MG X 42 Peggy ntix Starting Month Frederic 0.5 MG X 11 & 1 MG X 42 04/15/2021 12:00:00 AM EDT active Chantix Starting Month Frederic 0.5 MG X 11 & 1 MG X 42 eCW1 ([facility]) Loperamide Hydrochloride 2 MG Oral Tablet Loperamide H Cl 2 MG Loperamide HCl 2 MG 04/15/2021 12:00:00 AM EDT 1.0 {tablet_as_needed} active Loperamide HCl 2 MG eCW1 ([facility]) Chantix Starting Month Frederic 0.5 MG X 11 & 1 MG X 42 Peggy ntix Starting Month Frederic 0.5 MG X 11 & 1 MG X 42 04/15/2021 12:00:00 AM EDT active Chantix Starting Month Frederic 0.5 MG X 11 & 1 MG X 42 eCW1 ([facility]) Chantix Starting Month Frederic 0.5 MG X 11 & 1 MG X 42 Peggy ntix Starting Month Frederic 0.5 MG X 11 & 1 MG X 42 04/15/2021 12:00:00 AM EDT active Chantix Starting Month Frederic 0.5 MG X 11 & 1 MG X 42 eCW1 ([facility]) Loperamide Hydrochloride 2 MG Oral Tablet Loperamide H Cl 2 MG Loperamide HCl 2 MG 04/15/2021 12:00:00 AM EDT 1.0 {tablet_as_needed} active Loperamide HCl 2 MG eCW1 ([facility]) Chantix Starting Month Frederic 0.5 MG X 11 & 1 MG X 42 Epggy ntix Starting Month Frederic 0.5 MG X 11 & 1 MG X 42 04/15/2021 12:00:00 AM EDT active Chantix Starting Month Frederic 0.5 MG X 11 & 1 MG X 42 eCW1 ([facility]) Chantix Starting Month Frederic 0.5 MG X 11 & 1 MG X 42 Peggy ntix Starting Month Frederic 0.5 MG X 11 & 1 MG X 42 04/15/2021 12:00:00 AM EDT active Chantix Starting Month Frederic 0.5 MG X 11 & 1 MG X 42 eCW1 ([facility]) Loperamide Hydrochloride 2 MG Oral Tablet Loperamide H Cl 2 MG Loperamide HCl 2 MG 04/15/2021 12:00:00 AM EDT 1.0 {tablet_as_needed} active Loperamide HCl 2 MG eCW1 ([facility]) 1 mg 04/14/2021 12:00:00 AM EDT tablet 56 USE A S DIRECTED USE DIRECTED SOLD: 05/28/2021 [facility] 1 mg 04/14/2021 12:00:00 AM EDT tablet 56 USE A S DIRECTED USE DIRECTED SOLD: 04/22/2021 [facility] Chantix Continuing Month Frederic 1 MG Chantix Continuing Month P ak 1 MG 04/05/2021 12:00:00 AM EDT active Chantix Continuing Month Frederic 1 MG eCW1 ([facility]) Chantix Continuing Month Frederic 1 MG Chantix Continuing Month P ak 1 MG 04/05/2021 12:00:00 AM EDT active Chantix Continuing Month Frederic 1 MG eCW1 ([facility]) Chantix Continuing Month Frederic 1 MG Chantix Continuing Month P ak 1 MG 04/05/2021 12:00:00 AM EDT active Chantix Continuing Month Frederic 1 MG eCW1 ([facility]) Chantix Continuing Month Frederic 1 MG Chantix Continuing Month P ak 1 MG 04/05/2021 12:00:00 AM EDT active Chantix Continuing Month Frederic 1 MG eCW1 ([facility]) Chantix Continuing Month Frederic 1 MG Chantix Continuing Month P ak 1 MG 04/05/2021 12:00:00 AM EDT active Chantix Continuing Month Frederic 1 MG eCW1 ([facility]) Chantix Continuing Month Frederic 1 MG Chantix Continuing Month P ak 1 MG 04/05/2021 12:00:00 AM EDT active Chantix Continuing Month Frederic 1 MG eCW1 ([facility]) Chantix Continuing Month Frederic 1 MG Chantix Continuing Month P ak 1 MG 04/05/2021 12:00:00 AM EDT active Chantix Continuing Month Frederic 1 MG eCW1 ([facility]) Chantix Continuing Month Frederic 1 MG Chantix Continuing Month P ak 1 MG 04/05/2021 12:00:00 AM EDT active Chantix Continuing Month Frederic 1 MG eCW1 ([facility]) Chantix Continuing Month Frederic 1 MG Chantix Continuing Month P ak 1 MG 04/05/2021 12:00:00 AM EDT active Chantix Continuing Month Frederic 1 MG eCW1 ([facility]) Chantix Continuing Month Frederic 1 MG Chantix Continuing Month P ak 1 MG 04/05/2021 12:00:00 AM EDT active Chantix Continuing Month Frederic 1 MG eCW1 ([facility]) Chantix Continuing Month Frederic 1 MG Chantix Continuing Month P ak 1 MG 04/05/2021 12:00:00 AM EDT active Chantix Continuing Month Frederic 1 MG eCW1 ([facility]) Chantix Continuing Month Frederic 1 MG Chantix Continuing Month P ak 1 MG 04/05/2021 12:00:00 AM EDT active Chantix Continuing Month Frederic 1 MG eCW1 ([facility]) Chantix Continuing Month Frederic 1 MG Chantix Continuing Month P ak 1 MG 04/05/2021 12:00:00 AM EDT active Chantix Continuing Month Frederic 1 MG eCW1 ([facility]) 0.5 mg (11)- 1 mg (42) 02/15/2021 12:00:00 AM EDT tablets,do se pack 53 USE DIRECTED DAILY USE DIRECTED DAILY SOLD: 02/15/2021 [facility] Amitriptyline Hydrochloride 10 MG Oral Tablet Amitript yline HCl 10 MG Amitriptyline HCl 10 MG 02/11/2021 12:00:00 AM EDT 1.0 {tablet_at_b edtime} active Amitriptyline HCl 10 MG e CW1 ([facility]) 10 mg 02/11/2021 12:00:00 AM EDT tablet 30 TAKE ONE TABLET BY MOUTH EVERY DAY AT BEDTIME TAKE ONE TABLET BY MOUTH EVERY DAY AT BEDTIME SOLD: 02/15/2021 [facility] Amitriptyline Hydrochloride 10 MG Oral Tablet Amitript yline HCl 10 MG Amitriptyline HCl 10 MG 02/11/2021 12:00:00 AM EDT 1.0 {tablet_at_b edtime} active Amitriptyline HCl 10 MG e CW1 ([facility]) Chantix Starting Month Frederic 0.5 MG X 11 & 1 MG X 42 Peggy ntix Starting Month Frederic 0.5 MG X 11 & 1 MG X 42 02/11/2021 12:00:00 AM EDT active Chantix Starting Month Frederic 0.5 MG X 11 & 1 MG X 42 eCW1 ([facility]) Amitriptyline Hydrochloride 10 MG Oral Tablet Amitript yline HCl 10 MG Amitriptyline HCl 10 MG 02/11/2021 12:00:00 AM EDT 1.0 {tablet_at_b edtime} active Amitriptyline HCl 10 MG e CW1 ([facility]) Amitriptyline Hydrochloride 10 MG Oral Tablet Amitript yline HCl 10 MG Amitriptyline HCl 10 MG 02/11/2021 12:00:00 AM EDT 1.0 {tablet_at_b edtime} active Amitriptyline HCl 10 MG e 1 ([facility]) 0.1 % 12/23/2020 12:00:00 AM EDT cream 20 USE 1 APPLICATION PEA SIZED AMOUNT IN THE EVENING ONCE A DAY EXTERNALLY USE 1 APPLICATION PEA SIZED AMOUNT IN TH E EVENING ONCE A DAY EXTERNALLY SOLD: 12/25/2020 [facility] 0.1 % 12/23/2020 12:00:00 AM EDT cream 20 USE 1 APPLICATION PEA SIZED AMOUNT IN THE EVENING ONCE A DAY EXTERNALLY USE 1 APPLICATION PEA SIZED AMOUNT IN TH E EVENING ONCE A DAY EXTERNALLY SOLD: 05/15/2021 [facility] 100 mcg 12/11/2020 12:00:00 AM EDT tablet 30 TAKE ONE TABLET BY MOUTH EVERY MORNING ON AN EMPTY STOMACH TAKE ONE TABLET BY MOUTH EVERY MORNING O N AN EMPTY STOMACH SOLD: 12/13/2020 [facility] 100 mcg 12/11/2020 12:00:00 AM EDT tablet 30 TAKE ONE TABLET BY MOUTH EVERY MORNING ON AN EMPTY STOMACH TAKE ONE TABLET BY MOUTH EVERY MORNING O N AN EMPTY STOMACH SOLD: 01/14/2021 [facility] Levothyroxine Sodium 0.1 MG Oral Tablet Levothyroxine Sodium 100 MCG Levothyroxine Sodium 100 MCG 12/10/2020 12:00:00 AM EDT active Levothyroxine Sodium 100 MCG eCW1 ([facility]) Levothyroxine Sodium 0.1 MG Oral Tablet Levothyroxine Sodium 100 MCG Levothyroxine Sodium 100 MCG 12/10/2020 12:00:00 AM EDT active Levothyroxine Sodium 100 MCG eCW1 ([facility]) Levothyroxine Sodium 0.1 MG Oral Tablet Levothyroxine Sodium 100 MCG Levothyroxine Sodium 100 MCG 12/10/2020 12:00:00 AM EDT active Levothyroxine Sodium 100 MCG eCW1 ([facility]) Levothyroxine Sodium 0.1 MG Oral Tablet Levothyroxine Sodium 100 MCG Levothyroxine Sodium 100 MCG 12/10/2020 12:00:00 AM EDT active Levothyroxine Sodium 100 MCG eCW1 ([facility]) Levothyroxine Sodium 0.1 MG Oral Tablet Levothyroxine Sodium 100 MCG Levothyroxine Sodium 100 MCG 12/10/2020 12:00:00 AM EDT active Levothyroxine Sodium 100 MCG eCW1 ([facility]) Levothyroxine Sodium 0.1 MG Oral Tablet Levothyroxine Sodium 100 MCG Levothyroxine Sodium 100 MCG 12/10/2020 12:00:00 AM EDT active Levothyroxine Sodium 100 MCG eCW1 ([facility]) Levothyroxine Sodium 0.1 MG Oral Tablet Levothyroxine Sodium 100 MCG Levothyroxine Sodium 100 MCG 12/10/2020 12:00:00 AM EDT active Levothyroxine Sodium 100 MCG eCW1 ([facility]) 88 mcg 11/30/2020 12:00:00 AM EST tablet 90 TAKE ONE TABLET BY MOUTH IN THE MORNING ON AN EMPTY STOMACH TAKE ONE TABLET BY MOUTH IN THE MORNING ON AN EMPTY STOMACH SOLD: 12/03/2020 [facility] Tretinoin 0.0005 MG/MG Topical Gel 0.05 % TRETINOIN 2019 12:00:00 AM EST gel 45 USE 1 APPLICATION (P EA SIZED AMOUNT) IN THE EVENING ONCE A DAY EXTERNALLY USE 1 APPLICATION (PEA SIZED AMOUNT) IN THE EVENING ONCE A DAY EXTERNALLY SOLD: 09/13/2020 [facility] Clindamycin 0.01 MG/MG Topical Gel Clindamycin Phospha te 1 % Clindamycin Phosphate 1 % 09/10/2020 12:00:00 AM EST acti ve Clindamycin Phosphate 1 % eCW1 ([facility]) Tretinoin 1 MG/ML Topical Cream Tretinoin 0.1 % Tretinoin 0. 1 % 09/10/2020 12:00:00 AM EST active Tretinoi n 0.1 % eCW1 ([facility]) Clindamycin 0.01 MG/MG Topical Gel Clindamycin Phospha te 1 % Clindamycin Phosphate 1 % 09/10/2020 12:00:00 AM EST susp ended Clindamycin Phosphate 1 % eCW1 ([facility]) Tretinoin 1 MG/ML Topical Cream Tretinoin 0.1 % Tretinoin 0. 1 % 09/10/2020 12:00:00 AM EST active Tretinoi n 0.1 % eCW1 ([facility]) Tretinoin 0.0005 MG/MG Topical Gel Tretinoin 0.05 % Tretinoi n 0.05 % 09/10/2020 12:00:00 AM EST active Tretinoi n 0.05 % eCW1 ([facility]) Clindamycin 0.01 MG/MG Topical Gel Clindamycin Phospha te 1 % Clindamycin Phosphate 1 % 09/10/2020 12:00:00 AM EST susp ended Clindamycin Phosphate 1 % eCW1 ([facility]) Tretinoin 0.0005 MG/MG Topical Gel Tretinoin 0.05 % Tretinoi n 0.05 % 09/10/2020 12:00:00 AM EST active Tretinoi n 0.05 % eCW1 ([facility]) Tretinoin 0.0005 MG/MG Topical Gel Tretinoin 0.05 % Tretinoi n 0.05 % 09/10/2020 12:00:00 AM EST active Tretinoi n 0.05 % eCW1 ([facility]) Tretinoin 1 MG/ML Topical Cream Tretinoin 0.1 % Tretinoin 0. 1 % 09/10/2020 12:00:00 AM EST active Tretinoi n 0.1 % eCW1 ([facility]) Clindamycin 0.01 MG/MG Topical Gel Clindamycin Phospha te 1 % Clindamycin Phosphate 1 % 09/10/2020 12:00:00 AM EST acti ve Clindamycin Phosphate 1 % eCW1 ([facility]) Clindamycin 0.01 MG/MG Topical Gel Clindamycin Phospha te 1 % Clindamycin Phosphate 1 % 09/10/2020 12:00:00 AM EST acti ve Clindamycin Phosphate 1 % [facility]CW[facility] [place] Tretinoin 0.0005 MG/MG Topical Gel Tretinoin 0.05 % Tretinoi n 0.05 % 09/10/2020 12:00:00 AM EST active Tretinoi n 0.05 % eCW1 (Formerly [facility] [place]) Clindamycin 0.01 MG/MG Topical Gel Clindamycin Phospha te 1 % Clindamycin Phosphate 1 % 09/10/2020 12:00:00 AM EST susp ended Clindamycin Phosphate 1 % eCW1 ([facility]ly [facility] [place]) Tretinoin 1 MG/ML Topical Cream Tretinoin 0.1 % Tretinoin 0. 1 % 09/10/2020 12:00:00 AM EST active Tretinoi n 0.1 % eCW1 ([facility]ly [facility] [place]) Clindamycin 0.01 MG/MG Topical Gel Clindamycin Phospha te 1 % Clindamycin Phosphate 1 % 09/10/2020 12:00:00 AM EST acti ve Clindamycin Phosphate 1 % eCW1 ([facility]ly [facility] [place]) Clindamycin 0.01 MG/MG Topical Gel Clindamycin Phospha te 1 % Clindamycin Phosphate 1 % 09/10/2020 12:00:00 AM EST acti ve Clindamycin Phosphate 1 % eCW1 ([facility]ly [facility] [place]) Tretinoin 1 MG/ML Topical Cream Tretinoin 0.1 % Tretinoin 0. 1 % 09/10/2020 12:00:00 AM EST active Tretinoi n 0.1 % eCW1 ([facility]ly [facility] [place]) Clindamycin 0.01 MG/MG Topical Gel Clindamycin Phospha te 1 % Clindamycin Phosphate 1 % 09/10/2020 12:00:00 AM EST acti ve Clindamycin Phosphate 1 % eCW1 ([facility]ly [facility] [place]) Tretinoin 1 MG/ML Topical Cream Tretinoin 0.1 % Tretinoin 0. 1 % 09/10/2020 12:00:00 AM EST active Tretinoi n 0.1 % eCW1 ([facility]ly [facility] [place]) Tretinoin 0.0005 MG/MG Topical Gel Tretinoin 0.05 % Tretinoi n 0.05 % 09/10/2020 12:00:00 AM EST active Tretinoi n 0.05 % eCW1 ([facility] [place]) Clindamycin 0.01 MG/MG Topical Gel Clindamycin Phospha te 1 % Clindamycin Phosphate 1 % 09/10/2020 12:00:00 AM EST susp ended Clindamycin Phosphate 1 % eCW1 ([facility] [place]) Tretinoin 0.0005 MG/MG Topical Gel Tretinoin 0.05 % Tretinoi n 0.05 % 09/10/2020 12:00:00 AM EST active Tretinoi n 0.05 % eCW1 ([facility]ly [facility] [place]) Tretinoin 1 MG/ML Topical Cream Tretinoin 0.1 % Tretinoin 0. 1 % 09/10/2020 12:00:00 AM EST active Tretinoi n 0.1 % eCW1 ([facility] [place]) Clindamycin 0.01 MG/MG Topical Gel Clindamycin Phospha te 1 % Clindamycin Phosphate 1 % 09/10/2020 12:00:00 AM EST acti ve Clindamycin Phosphate 1 % eCW1 ([facility]ly [facility] [place]) Clindamycin 0.01 MG/MG Topical Gel Clindamycin Phospha te 1 % Clindamycin Phosphate 1 % 09/10/2020 12:00:00 AM EST acti ve Clindamycin Phosphate 1 % eCW1 ([facility] [place]) Tretinoin 0.0005 MG/MG Topical Gel Tretinoin 0.05 % Tretinoi n 0.05 % 09/10/2020 12:00:00 AM EST active Tretinoi n 0.05 % eCW1 ([facility] [place]) Clindamycin 0.01 MG/MG Topical Gel Clindamycin Phospha te 1 % Clindamycin Phosphate 1 % 09/10/2020 12:00:00 AM EST acti ve Clindamycin Phosphate 1 % eCW1 ([facility] [place]) Tretinoin 1 MG/ML Topical Cream Tretinoin 0.1 % Tretinoin 0. 1 % 09/10/2020 12:00:00 AM EST active Tretinoi n 0.1 % eCW1 ([facility] [place]) Tretinoin 1 MG/ML Topical Cream Tretinoin 0.1 % Tretinoin 0. 1 % 09/10/2020 12:00:00 AM EST active Tretinoi n 0.1 % eCW1 ([facility] [place]) Tretinoin 1 MG/ML Topical Cream Tretinoin 0.1 % Tretinoin 0. 1 % 09/10/2020 12:00:00 AM EST active Tretinoi n 0.1 % eCW1 ([facility] [place]) Tretinoin 1 MG/ML Topical Cream Tretinoin 0.1 % Tretinoin 0. 1 % 09/10/2020 12:00:00 AM EST active Tretinoi n 0.1 % eCW1 ([facility] [place]) Tretinoin 0.0005 MG/MG Topical Gel Tretinoin 0.05 % Tretinoi n 0.05 % 09/10/2020 12:00:00 AM EST active Tretinoi n 0.05 % eCW1 ([facility] [place]) Clindamycin 0.01 MG/MG Topical Gel Clindamycin Phospha te 1 % Clindamycin Phosphate 1 % 09/10/2020 12:00:00 AM EST acti ve Clindamycin Phosphate 1 % eCW1 ([facility] [place]) Clindamycin 0.01 MG/MG Topical Gel Clindamycin Phospha te 1 % Clindamycin Phosphate 1 % 09/10/2020 12:00:00 AM EST acti ve Clindamycin Phosphate 1 % eCW1 ([facility] [place]) 1 % 09/10/2020 12:00:00 AM EST gel 30 USE 1 APPLICATION TO FACE ONCE A DAY EXTERNALLY FOR 30 DAYS USE 1 APPLICATION TO FACE ONCE A DAY EXT ERNALLY FOR 30 DAYS SOLD: 09/13/2020 [facility] Tretinoin 1 MG/ML Topical Cream Tretinoin 0.1 % Tretinoin 0. 1 % 09/10/2020 12:00:00 AM EST active Tretinoi n 0.1 % eCW1 ([facility] [place]) Clindamycin 0.01 MG/MG Topical Gel Clindamycin Phospha te 1 % Clindamycin Phosphate 1 % 09/10/2020 12:00:00 AM EST acti ve Clindamycin Phosphate 1 % eCW1 ([facility] [place]) Clindamycin 0.01 MG/MG Topical Gel Clindamycin Phospha te 1 % Clindamycin Phosphate 1 % 09/10/2020 12:00:00 AM EST susp ended Clindamycin Phosphate 1 % eCW1 ([facility] [place]) Clindamycin 0.01 MG/MG Topical Gel Clindamycin Phospha te 1 % Clindamycin Phosphate 1 % 09/10/2020 12:00:00 AM EST acti ve Clindamycin Phosphate 1 % eCW1 ([facility] [place]) Tretinoin 1 MG/ML Topical Cream Tretinoin 0.1 % Tretinoin 0. 1 % 09/10/2020 12:00:00 AM EST active Tretinoi n 0.1 % eCW1 ([facility] [place]) Clindamycin 0.01 MG/MG Topical Gel Clindamycin Phospha te 1 % Clindamycin Phosphate 1 % 09/10/2020 12:00:00 AM EST acti ve Clindamycin Phosphate 1 % eCW1 ([facility] [place]) Tretinoin 1 MG/ML Topical Cream Tretinoin 0.1 % Tretinoin 0. 1 % 09/10/2020 12:00:00 AM EST active Tretinoi n 0.1 % eCW1 ([facility] [place]) Clindamycin 0.01 MG/MG Topical Gel Clindamycin Phospha te 1 % Clindamycin Phosphate 1 % 09/10/2020 12:00:00 AM EST acti ve Clindamycin Phosphate 1 % eCW1 ([facility] [place]) Clindamycin 0.01 MG/MG Topical Gel Clindamycin Phospha te 1 % Clindamycin Phosphate 1 % 09/10/2020 12:00:00 AM EST susp ended Clindamycin Phosphate 1 % eCW1 ([facility] [place]) Clindamycin 0.01 MG/MG Topical Gel Clindamycin Phospha te 1 % Clindamycin Phosphate 1 % 09/10/2020 12:00:00 AM EST acti ve Clindamycin Phosphate 1 % eCW1 ([facility] [place]) Clindamycin 0.01 MG/MG Topical Gel Clindamycin Phospha te 1 % Clindamycin Phosphate 1 % 09/10/2020 12:00:00 AM EST acti ve Clindamycin Phosphate 1 % eCW1 ([facility] [place]) Tretinoin 1 MG/ML Topical Cream Tretinoin 0.1 % Tretinoin 0. 1 % 09/10/2020 12:00:00 AM EST active Tretinoi n 0.1 % eCW1 ([facility] [place]) Clindamycin 0.01 MG/MG Topical Gel Clindamycin Phospha te 1 % Clindamycin Phosphate 1 % 09/10/2020 12:00:00 AM EST susp ended Clindamycin Phosphate 1 % eCW1 ([facility] [place]) Tretinoin 1 MG/ML Topical Cream Tretinoin 0.1 % Tretinoin 0. 1 % 09/10/2020 12:00:00 AM EST active Tretinoi n 0.1 % eCW1 ([facility] [place]) 0.025 % 08/01/2020 12:00:00 AM EST cream 45 USE 1 APPLICATION IN THE EVENING TO FACE (PEA SIZED AMOUNT) ONCE DAILY EXTERNALLY USE 1 APPLICATION IN THE EVENING TO FACE (PEA SIZED AMOUNT) ONCE DAILY EXTERNALLY SOLD: 08/02/2020 [facility] 88 mcg 07/31/2020 12:00:00 AM EST tablet 30 TAKE ONE TABLET BY MOUTH EVERY MORNING ON AN EMPTY STOMACH TAKE ONE TABLET BY MOUTH EVERY MORNING O N AN EMPTY STOMACH SOLD: 11/09/2020 [facility] 88 mcg 07/31/2020 12:00:00 AM EST tablet 30 TAKE ONE TABLET BY MOUTH EVERY MORNING ON AN EMPTY STOMACH TAKE ONE TABLET BY MOUTH EVERY MORNING O N AN EMPTY STOMACH SOLD: 08/01/2020 [facility] 88 mcg 07/31/2020 12:00:00 AM EST tablet 30 TAKE ONE TABLET BY MOUTH EVERY MORNING ON AN EMPTY STOMACH TAKE ONE TABLET BY MOUTH EVERY MORNING O N AN EMPTY STOMACH SOLD: 10/06/2020 [facility] Tretinoin 0.25 MG/ML Topical Cream Tretinoin 0.025 % Tretino in 0.025 % 07/30/2020 12:00:00 AM EST active Tretinoin 0.025 % eCW1 ([facility] [place]) Levothyroxine Sodium 0.088 MG Oral Tablet Levothyroxin e Sodium 88 MCG Levothyroxine Sodium 88 MCG 07/30/2020 12:00:00 AM EST active Levothyroxine Sodium 88 MCG eCW1 ([facility] [place]) Levothyroxine Sodium 0.088 MG Oral Tablet Levothyroxin e Sodium 88 MCG Levothyroxine Sodium 88 MCG 07/30/2020 12:00:00 AM EST active Levothyroxine Sodium 88 MCG eCW1 ([facility] [place]) Levothyroxine Sodium 0.088 MG Oral Tablet Levothyroxin e Sodium 88 MCG Levothyroxine Sodium 88 MCG 07/30/2020 12:00:00 AM EST active Levothyroxine Sodium 88 MCG eCW1 ([facility] [place]) Levothyroxine Sodium 0.088 MG Oral Tablet Levothyroxin e Sodium 88 MCG Levothyroxine Sodium 88 MCG 07/30/2020 12:00:00 AM EST active Levothyroxine Sodium 88 MCG eCW1 ([facility] [place]) Levothyroxine Sodium 0.088 MG Oral Tablet Levothyroxin e Sodium 88 MCG Levothyroxine Sodium 88 MCG 07/30/2020 12:00:00 AM EST active Levothyroxine Sodium 88 MCG eCW1 ([facility] [place]) Levothyroxine Sodium 0.088 MG Oral Tablet Levothyroxin e Sodium 88 MCG Levothyroxine Sodium 88 MCG 07/30/2020 12:00:00 AM EST active Levothyroxine Sodium 88 MCG eCW1 ([facility] [place]) Levothyroxine Sodium 0.088 MG Oral Tablet Levothyroxin e Sodium 88 MCG Levothyroxine Sodium 88 MCG 07/30/2020 12:00:00 AM EST active Levothyroxine Sodium 88 MCG eCW1 ([facility] [place]) Tretinoin 0.25 MG/ML Topical Cream Tretinoin 0.025 % Tretino in 0.025 % 07/30/2020 12:00:00 AM EST active Tretinoin 0.025 % eCW1 ([facility] [place]) Tretinoin 0.25 MG/ML Topical Cream Tretinoin 0.025 % Tretino in 0.025 % 07/30/2020 12:00:00 AM EST active Tretinoin 0.025 % eCW1 ([facility] [place]) Levothyroxine Sodium 0.088 MG Oral Tablet Levothyroxin e Sodium 88 MCG Levothyroxine Sodium 88 MCG 07/30/2020 12:00:00 AM EST active Levothyroxine Sodium 88 MCG eCW1 ([facility] [place]) Levothyroxine Sodium 0.088 MG Oral Tablet Levothyroxin e Sodium 88 MCG Levothyroxine Sodium 88 MCG 07/30/2020 12:00:00 AM EST active Levothyroxine Sodium 88 MCG eCW1 ([facility] [place]) Levothyroxine Sodium 0.088 MG Oral Tablet Levothyroxin e Sodium 88 MCG Levothyroxine Sodium 88 MCG 07/30/2020 12:00:00 AM EST active Levothyroxine Sodium 88 MCG eCW1 ([facility] [place]) Insurance Providers Payer name Policy type / Coverage type Policy ID Covered green party ID Covered green party's relationship to haas Policy Haas Plan Information [employer] [place] 302/307 [id number] SP [id number] [employer]BS B [id number] P [id number] [employer] [place] P[place] 302/307 [id number] [id number] OTHER1 [id number] SP [id number] ANSI-Medicaid [id number] ANSI-Not a Secondary Insurance [id number] ANSI-Medicaid [id number] ANSI-Commercial [id number] ANSI-Medicaid [id number] ANSI-Medicaid [id number] MEDICAID [id number] SP [id number] ANSI-Not a Secondary Insurance [id number] ANSI-Medicaid [id number] ANSI-Medicaid [id number] ANSI-Medicaid [id number] ANSI-Medicaid [id number] ANSI-Not a Secondary Insurance [id number] ANSI-Medicaid [id number] ANSI-Medicaid [id number] ANSI-Medicaid [id number] ANSI-Medicaid [id number] ANSI-Medicaid [id number] ANSI-Medicaid [id number] ANSI-Medicaid [id number] ANSI-Medicaid [id number] ANSI-Not a Secondary Insurance [id number] ANSI-Not a Secondary Insurance [id number] ANSI-Medicaid [id number] ANSI-Medicaid [id number] ANSI-Medicaid [id number] ANSI-Medicaid [id number] ANSI-Medicaid [id number] ANSI-Medicaid [id number] ANSI-Not a Secondary Insurance [id number] ANSI-Medicaid [id number] ANSI-Not a Secondary Insurance [id number] ANSI-Medicaid [id number] ANSI-Medicaid [id number] [facility] [id number] ANSI-Medicaid [id number] ANSI-Medicaid [id number] ANSI-Medicaid [id number] ANSI-Not a Secondary Insurance [id number] ANSI-Not a Secondary Insurance [id number] ANSI-Medicaid [id number] ANSI-Medicaid [id number] ANSI-Medicaid [id number] ANSI-Medicaid [id number] ANSI-Not a Secondary Insurance [id number] ANSI-Medicaid [id number] ANSI-Medicaid [id number] ANSI-Medicaid [id number] ANSI-Medicaid [id number] ANSI-Not a Secondary Insurance [id number] ANSI-Medicaid [id number] [facility] [id number] SP [id number] ANSI-Medicaid [id number] ANSI-Medicaid [id number] ANSI-Not a Secondary Insurance [id number] SELF PAY ONLY - [id number] SP [id number] ANSI-Medicaid [id number] ANSI-Medicaid [id number] ANSI-Not a Secondary Insurance [id number] ANSI-Medicaid [id number] ANSI-Medicaid [id number] ANSI-Medicaid [id number] ANSI-Medicaid [id number] ANSI-Medicaid [id number] ANSI-Medicaid [id number] ANSI-Medicaid [id number] ANSI-Medicaid [id number] ANSI-Medicaid [id number] ANSI-Medicaid [id number] ANSI-Medicaid [id number] ANSI-Medicaid [id number] ANSI-Medicaid [id number] ANSI-Medicaid [id number] ANSI-Medicaid [id number] ANSI-Medicaid [id number] ANSI-Medicaid [id number] ANSI-Medicaid [id number] ANSI-Medicaid [id number] ANS-Medicaid [id number] [facility] Commercial [id number] Self [id number] [facility]) O [id number] S [id number] [employer] [id number] SP [id number] [employer] [id number] SP [id number] [facility] [id number] SP [id number] [facility] [id number] S [id number] SELF PAY UNAVAILABLE SP UNAVAILA BLE [facility]/P [id number] Problems, Conditions, and Diagnoses Code Display Name Description Problem Type Effective Dates Data Source(s) N93.9 [id number] Abnormal uterine bleeding (AUB) Problem 05/07/2021 12:00:00 AM EDT eCW1 ([facility]) N93.0 [id number] Postcoital bleeding Problem 11/06/2020 12:00 :00 AM EST eCW1 ([facility]ly [facility]) N93.9 [id number] Abnormal uterine bleeding (AUB) Problem 11/06/2020 12:00:00 AM EST eCW1 ([facility]ly [facility]) N93.9 [id number] Abnormal uterine bleeding Problem 10/12/2020 12:00:00 AM EST eCW1 ([facility]ly [facility]) N92.3 [id number] Intermenstrual bleeding Problem 10/01/2020 1 2:00:00 AM EST eCW1 ([facility]ly [facility]) Surgeries/Procedures No Information Results ID Date Data Source FREE T4 & TSH PANEL 10/01/2020 12:00:00 AM EST eCW1 ([facility]) Name Value Range Interpretation Code Description Data Maria Luisa rce(s) Supporting Document(s) 2.770 0.358-3.740 THYROID STIMULATING HORM ONE eCW1 ([facility]ly [facility]) 1.43 0.76-1.46 FREE T4 eCW1 ([facility]) Procedure Social History Code Duration Value Status Description Data Source(s ) Smoking 05/17/2021 12:00:00 AM EDT Current Smoker completed Curre nt Smoker eCW1 ([facility]ly [facility]) Smoking 05/17/2021 12:00:00 AM EDT Current Smoker completed Curre nt Smoker eCW1 ([facility]ly [facility]) Smoking 05/17/2021 12:00:00 AM EDT Current Smoker completed Curre nt Smoker eCW1 ([facility]ly [facility]) Smoking 05/17/2021 12:00:00 AM EDT Current Smoker completed Curre nt Smoker eCW1 ([facility]ly [facility]) Smoking 05/10/2021 12:00:00 AM EDT Current Smoker completed Curre nt Smoker eCW1 ([facility]ly [facility]) Smoking 04/28/2021 12:00:00 AM EDT Current Smoker completed Curre nt Smoker eCW1 ([facility]ly [facility]) Smoking 04/28/2021 12:00:00 AM EDT Current Smoker completed Curre nt Smoker eCW1 ([facility]ly [facility]) Smoking 04/15/2021 12:00:00 AM EDT Current Smoker completed Curre nt Smoker eCW1 ([facility]ly [facility]) Smoking 04/15/2021 12:00:00 AM EDT Current Smoker completed Curre nt Smoker eCW1 ([facility]ly [facility]) Smoking 04/15/2021 12:00:00 AM EDT Current Smoker completed Curre nt Smoker eCW1 ([facility]ly [facility]) Smoking 02/11/2021 12:00:00 AM EDT Current Smoker completed Curre nt Smoker eCW1 ([facility]ly [facility]) Smoking 02/11/2021 12:00:00 AM EDT Current Smoker completed Curre nt Smoker eCW1 ([facility]ly [facility]) Smoking 02/11/2021 12:00:00 AM EDT Current Smoker completed Curre nt Smoker eCW1 ([facility]ly [facility]) Smoking 02/11/2021 12:00:00 AM EDT Current Smoker completed Curre nt Smoker eCW1 ([facility]ly [facility]) Smoking 11/16/2020 12:00:00 AM EST Current Smoker completed Curre nt Smoker eCW1 ([facility]ly [facility]) Smoking 11/16/2020 12:00:00 AM EST Current Smoker completed Curre nt Smoker eCW1 ([facility]ly [facility]) Smoking 11/16/2020 12:00:00 AM EST Current Smoker completed Curre nt Smoker eCW1 ([facility]ly [facility]) Smoking 11/16/2020 12:00:00 AM EST Current Smoker completed Curre nt Smoker eCW1 ([facility]ly [facility]) Smoking 11/16/2020 12:00:00 AM EST Current Smoker completed Curre nt Smoker eCW1 ([facility]ly [facility]) Smoking 11/06/2020 12:00:00 AM EST Current Smoker completed Curre nt Smoker eCW1 ([facility]ly [facility]) Smoking 10/01/2020 12:00:00 AM EST Current Smoker completed Curre nt Smoker eCW1 ([facility]ly [facility]) Smoking 10/01/2020 12:00:00 AM EST Current Smoker completed Curre nt Smoker eCW1 ([facility]ly [facility]) Smoking 10/01/2020 12:00:00 AM EST Current Smoker completed Curre nt Smoker eCW1 ([facility]ly [facility]) Smoking 09/10/2020 12:00:00 AM EST Current Smoker completed Curre nt Smoker eCW1 ([facility]ly [facility]) Smoking 07/30/2020 12:00:00 AM EST Current Smoker completed Curre nt Smoker eCW1 ([facility]ly [facility]) Smoking 07/30/2020 12:00:00 AM EST Current Smoker completed Curre nt Smoker eCW1 ([facility]ly [facility]) Smoking 07/30/2020 12:00:00 AM EST Current Smoker completed Curre nt Smoker eCW1 (Formerly [facility]) Vital Signs ID Date Data Source UNK Name Value Range Interpretation Code Description Data Source(s) Body weight 160.4 [lb_av] 160.4 [lb_av] eCW1 ([facility]) Body weight 72.76 kg 72.76 kg eCW1 ([facility]) Body height 64 [in_i] 64 [in_i] eCW1 ([facility]) Body mass index (BMI) [Ratio] 27.53 kg/m2 27.53 kg/m2 eCW1 ([facility]) Systolic blood pressure 116 mm[Hg] 116 mm[Hg] e CW1 ([facility]) Diastolic blood pressure 80 mm[Hg] 80 mm[Hg] eCW1 ([facility]) Body weight 156 [lb_av] 156 [lb_av] eCW1 ([facility]) Body weight 70.76 kg 70.76 kg eCW1 ([facility]) Body height 64 [in_i] 64 [in_i] eCW1 ([facility]) Body mass index (BMI) [Ratio] 26.77 kg/m2 26.77 kg/m2 eCW1 ([facility]) Systolic blood pressure 118 mm[Hg] 118 mm[Hg] e CW1 ([facility]) Diastolic blood pressure 82 mm[Hg] 82 mm[Hg] eCW1 (Formerly [facility]) Body weight 158.2 [lb_av] 158.2 [lb_av] eCW1 (Formerly [facility]) Body height 64 [in_i] 64 [in_i] eCW1 ([facility]) Body mass index (BMI) [Ratio] 27.15 kg/m2 27.15 kg/m2 eCW1 (Formerly [facility]) Systolic blood pressure 122 mm[Hg] 122 mm[Hg] e CW1 (Formerly [facility]) Diastolic blood pressure 80 mm[Hg] 80 mm[Hg] eCW1 ([facility]ly [facility]) Body weight 156 [lb_av] 156 [lb_av] eCW1 ([facility]) Body height 64 [in_i] 64 [in_i] eCW1 ([facility]) Body mass index (BMI) [Ratio] 26.77 kg/m2 26.77 kg/m2 W1 (Formerly [facility]) Heart rate 117 /min 117 /min eCW1 ([facility]) Respiratory rate 18 /min 18 /min eCW1 ([facility]) Body temperature 98.5 [degF] 98.5 [degF] eCW1 ( [facility]ly [facility]) Systolic blood pressure 142 mm[Hg] 142 mm[Hg] e CW1 ([facility]ly [facility]) Diastolic blood pressure 82 mm[Hg] 82 mm[Hg] eCW1 ([facility]ly [facility]) Body weight 154 [lb_av] 154 [lb_av] eCW1 ([facility]) Body height 64 [in_i] 64 [in_i] eCW1 ([facility]) Body mass index (BMI) [Ratio] 26.43 kg/m2 26.43 kg/m2 eCW1 (Formerly [facility]) Heart rate 111 /min 111 /min eCW1 ([facility]) Respiratory rate 18 /min 18 /min eCW1 ([facility]) Body temperature 98 [degF] 98 [degF] eCW1 ([facility]) Systolic blood pressure 110 mm[Hg] 110 mm[Hg] e CW1 ([facility]ly [facility]) Diastolic blood pressure 78 mm[Hg] 78 mm[Hg] eCW1 ([facility]ly [facility]) Body weight 154.36 [lb_av] 154.36 [lb_av] eCW1 ([facility]) Body height 64 [in_i] 64 [in_i] eCW1 ([facility]) Body mass index (BMI) [Ratio] 26.49 kg/m2 26.49 kg/m2 eCW1 ([facility]ly [facility]) Systolic blood pressure 110 mm[Hg] 110 mm[Hg] e CW1 ([facility]ly [facility]) Diastolic blood pressure 80 mm[Hg] 80 mm[Hg] eCW1 ([facility]) Body weight 153 [lb_av] 153 [lb_av] eCW1 ([facility]) Body height 64 [in_i] 64 [in_i] eCW1 ([facility]) Body mass index (BMI) [Ratio] 26.26 kg/m2 26.26 kg/m2 eCW1 ([facility]ly [facility]) Systolic blood pressure 124 mm[Hg] 124 mm[Hg] e CW1 ([facility]ly [facility]) Body weight 69.4 kg 69.4 kg eCW1 ([facility]) Diastolic blood pressure 78 mm[Hg] 78 mm[Hg] eCW1 ([facility]ly [facility]) Body mass index (BMI) [Ratio] 26.09 kg/m2 26.09 kg/m2 eCW1 ([facility]ly [facility]) Body weight 152 [lb_av] 152 [lb_av] eCW1 ([facility]) Body height 64 [in_i] 64 [in_i] eCW1 ([facility]) Heart rate 120 /min 120 /min eCW1 ([facility]) Respiratory rate 18 /min 18 /min eCW1 ([facility]) Body temperature 98.4 [degF] 98.4 [degF] eCW1 ( [facility]) Systolic blood pressure 130 mm[Hg] 130 mm[Hg] e CW1 ([facility]ly [facility]) Diastolic blood pressure 80 mm[Hg] 80 mm[Hg] eCW1 ([facility]ly [facility]) Body weight 152.0 [lb_av] 152.0 [lb_av] eCW1 (Formerly [facility]) Body height 64 [in_i] 64 [in_i] eCW1 ([facility]) Body mass index (BMI) [Ratio] 26.09 kg/m2 26.09 kg/m2 eCW1 ([facility]ly [facility]) Systolic blood pressure 122 mm[Hg] 122 mm[Hg] e CW1 ([facility]) Diastolic blood pressure 70 mm[Hg] 70 mm[Hg] eCW1 ([facility]) Body weight 150.0 [lb_av] 150.0 [lb_av] eCW1 (Formerly [facility]) Body height 64 [in_i] 64 [in_i] eCW1 ([facility]) Body mass index (BMI) [Ratio] 25.74 kg/m2 25.74 kg/m2 eCW1 ([facility]) Systolic blood pressure 124 mm[Hg] 124 mm[Hg] e CW1 ([facility]) Diastolic blood pressure 72 mm[Hg] 72 mm[Hg] eCW1 ([facility]ly [facility]) Patient Treatment Plan of Care Planned Activity Planned Date Details Description Data Source (s) Levothyroxine Sodium 0.1 MG Oral Tablet [Synthroid] 06/02/20 12:00:00 AM EDT eCW1 ([facility]) Spironolactone 50 MG Oral Tablet 05/17/2021 12:00:00 AM EDT eCW1 ([facility]ly [facility]) Spironolactone 50 MG Oral Tablet 05/17/2021 12:00:00 AM EDT eCW1 ([facility]ly [facility]) Spironolactone 50 MG Oral Tablet 05/17/2021 12:00:00 AM EDT eCW1 ([facility]ly [facility]) Spironolactone 50 MG Oral Tablet 05/17/2021 12:00:00 AM EDT eCW1 ([facility]ly [facility]) Levothyroxine Sodium 0.1 MG Oral Tablet [Euthyrox] 04/21/2021 12 :00:00 AM EDT eCW1 ([facility]ly [facility]) Chantix Starting Month Frederic 0.5 MG X 11 & 1 MG X 42 04/15/2021 12 :00:00 AM EDT eCW1 ([facility]ly [facility]) Loperamide Hydrochloride 2 MG Oral Tablet 04/15/2021 12:00:00 AM ED T eCW1 ([facility]ly [facility]) Chantix Starting Month Frederic 0.5 MG X 11 & 1 MG X 42 04/15/2021 12 :00:00 AM EDT eCW1 ([facility]) Levothyroxine Sodium 0.1 MG Oral Tablet [Synthroid] 04/15/20 12:00:00 AM EDT eCW1 ([facility]) Loperamide Hydrochloride 2 MG Oral Tablet 04/15/2021 12:00:00 AM ED T eCW1 ([facility]ly [facility]) Levothyroxine Sodium 0.1 MG Oral Tablet [Synthroid] 04/15/20 12:00:00 AM EDT eCW1 ([facility]) Chantix Starting Month Frederic 0.5 MG X 11 & 1 MG X 42 04/15/2021 12 :00:00 AM EDT eCW1 ([facility]ly [facility]) Loperamide Hydrochloride 2 MG Oral Tablet 04/15/2021 12:00:00 AM ED T eCW1 ([facility]ly [facility]) Chantix Continuing Month Frederic 1 MG 04/05/2021 12:00:00 AM EDT eCW1 ([facility]ly [facility]) Chantix Continuing Month Frederic 1 MG 04/05/2021 12:00:00 AM EDT eCW1 ([facility]) Chantix Continuing Month Frederic 1 MG 04/05/2021 12:00:00 AM EDT eCW1 ([facility]) Chantix Continuing Month Frederic 1 MG 04/05/2021 12:00:00 AM EDT eCW1 ([facility]) Chantix Continuing Month Frederic 1 MG 04/05/2021 12:00:00 AM EDT eCW1 ([facility]) Chantix Continuing Month Frederic 1 MG 04/05/2021 12:00:00 AM EDT eCW1 ([facility]) Amitriptyline Hydrochloride 10 MG Oral Tablet 02/11/2021 12:00:00 A M EDT eCW1 ([facility]) Amitriptyline Hydrochloride 10 MG Oral Tablet 02/11/2021 12:00:00 A M EDT eCW1 ([facility]) Amitriptyline Hydrochloride 10 MG Oral Tablet 02/11/2021 12:00:00 A M EDT eCW1 ([facility]) Chantix Starting Month Frederic 0.5 MG X 11 & 1 MG X 42 02/11/2021 12 :00:00 AM EDT eCW1 ([facility]) Amitriptyline Hydrochloride 10 MG Oral Tablet 02/11/2021 12:00:00 A M EDT eCW1 ([facility]) Levothyroxine Sodium 0.1 MG Oral Tablet 12/10/2020 12:00:00 AM EDT eCW1 ([facility]) Levothyroxine Sodium 0.1 MG Oral Tablet 12/10/2020 12:00:00 AM EDT eCW1 ([facility]) Levothyroxine Sodium 0.1 MG Oral Tablet 12/10/2020 12:00:00 AM EDT eCW1 ([facility]) Levothyroxine Sodium 0.1 MG Oral Tablet 12/10/2020 12:00:00 AM EDT eCW1 ([facility]) Levothyroxine Sodium 0.1 MG Oral Tablet 12/10/2020 12:00:00 AM EDT eCW1 ([facility]) Levothyroxine Sodium 0.1 MG Oral Tablet 12/10/2020 12:00:00 AM EDT eCW1 ([facility]) Levothyroxine Sodium 0.1 MG Oral Tablet 12/10/2020 12:00:00 AM EDT eCW1 ([facility]) Tretinoin 1 MG/ML Topical Cream 09/10/2020 12:00:00 AM EST eCW1 ([facility]ly [facility]) Tretinoin 1 MG/ML Topical Cream 09/10/2020 12:00:00 AM EST eCW1 ([facility]ly [facility]) Tretinoin 1 MG/ML Topical Cream 09/10/2020 12:00:00 AM EST eCW1 ([facility]) Tretinoin 1 MG/ML Topical Cream 09/10/2020 12:00:00 AM EST eCW1 ([facility]) Tretinoin 1 MG/ML Topical Cream 09/10/2020 12:00:00 AM EST eCW1 ([facility]) Tretinoin 1 MG/ML Topical Cream 09/10/2020 12:00:00 AM EST eCW1 ([facility]) Tretinoin 0.0005 MG/MG Topical Gel 09/10/2020 12:00:00 AM EST eCW1 ([facility]) Clindamycin 0.01 MG/MG Topical Gel 09/10/2020 12:00:00 AM EST eCW1 ([facility]) Levothyroxine Sodium 0.088 MG Oral Tablet 07/30/2020 12:00:00 AM ES T eCW1 ([facility]) Levothyroxine Sodium 0.088 MG Oral Tablet 07/30/2020 12:00:00 AM ES T eCW1 ([facility]) Tretinoin 0.25 MG/ML Topical Cream 07/30/2020 12:00:00 AM EST eCW1 ([facility]) Levothyroxine Sodium 0.088 MG Oral Tablet 07/30/2020 12:00:00 AM ES T eCW1 ([facility]) Tretinoin 0.25 MG/ML Topical Cream 07/30/2020 12:00:00 AM EST eCW1 ([facility]) Levothyroxine Sodium 0.088 MG Oral Tablet 07/30/2020 12:00:00 AM ES T eCW1 ([facility]) Tretinoin 0.25 MG/ML Topical Cream 07/30/2020 12:00:00 AM EST eCW1 ([facility]ly [facility])
[2021-07-24 05:58] LABS: HEMATOCRIT 42.8 % (36.0-47.0); HEMOGLOBIN 13.9 g/dl (12.0-15.5); MEAN CORPUSCULAR HEMOGLOBIN 28.7 pg (27.0-33.0); MEAN CORPUSCULAR HGB CONC 32.5 g/dl (32.0-36.5); MEAN CORPUSCULAR VOLUME 88.4 fl (80.0-96.0); PLATELET COUNT, AUTOMATED 337 10^3/uL (150-450); RED BLOOD COUNT 4.84 10^6/uL (4.00-5.40); WHITE BLOOD COUNT 7.7 10^3/uL (4.0-10.0)
--- OUTSIDE RECORDS SUMMARY | 2021-07-24 06:22 | CCD ---
Author Author [facility] Address Unknown Phone Unavailable Support Name Relationship Address Phone UNEMPLOYED Next Of Kin [address] [place] [address] [place] [address] UE Next Of Kin Unknown Unavailable JORGE LUIS AMARAL Next Of [facility] [address] [place] [address] KACY VILLAGOMEZ Next Of Kin [address] [place] [address] [place] [address] HERNANDO WOODRUFF Next Of Kin [address] [place] [address] CAMILLE VILLAGOMEZ Next Of [facility] [address] [place] [address] Zay[place]ab [place] [address] Jorge Luis Amaral ECON [address] [place] [address] Unavailable NishRicki campos ECON [address] [place] [address] Unavailable Re-disclosure Warning The records that you [...] is protected by Article 27-F of the [facility] Public Health law. If you continue you may have access to information: Regarding HIV / AIDS; Provided by facilities licensed or operated by the [facility] Office of Mental Health; or Provided by the [facility] Office for People With Developmental Disabilities. If such information is present, then the following [facility] mandated warning applies: This information has been [...] law may result in a fine or longterm sentence or both. A general authorization for the release of medical or other information is NOT sufficient authorization for further disc losure. Family History Family Member Name Family Member Gender Family Member Status Date o f Status Description Data Source(s) Unknown Unknown Problem [facility] ([facility] Father's parents Encounters Encounter Providers Location Date Indications Data Source(s ) Unknown [address] [facility] [id number] 06/02/2021 12:00:00 AM EDT eCW1 ([facility]) Unknown [address] [facility] [id number] 05/19/2021 12:00:00 AM EDT eCW1 ([facility]) Outpatient [address] [facility] [id number] 05/17/2021 12:00:00 AM EDT eCW1 ([facility]) Unknown [address] [facility] [id number] 05/17/2021 12:00:00 AM EDT eCW1 ([facility]) (WC PROC) [facility] Procedure [address] [place] [address] 05/10/2021 12:00:00 AM EDT eCW1 ([facility]) Outpatient [address] [facility] [id number] 04/28/2021 12:00:00 AM EDT eCW1 ([facility]) [place] [address] [facility] [address] 04/28/2021 12:00:00 AM EDT eCW1 ([facility]) [place] [address] [facility] [address] 04/20/2021 12:00:00 AM EDT eCW1 ([facility]) [place] [address] [facility] [address] 04/17/2021 12:00:00 AM EDT eCW1 ([facility]) [place] [address] [facility] [address] 04/15/2021 12:00:00 AM EDT eCW1 ([facility]) [place] [address] [facility] [address] 04/07/2021 12:00:00 AM EDT eCW1 ([facility]) [place] [address] [facility] [address] 03/30/2021 12:00:00 AM EDT eCW1 ([facility]) [place] [address] [facility] [address] 03/28/2021 12:00:00 AM EDT eCW1 ([facility]) [place] [address] [facility] [address] 02/11/2021 12:00:00 AM EDT eCW1 ([facility]) [place] [address] [facility] [address] 01/25/2021 12:00:00 AM EDT eCW1 ([facility]) [place] [address] [facility] [address] 12/23/2020 12:00:00 AM EDT eCW1 ([facility]) [place] [address] [facility] [address] 12/10/2020 12:00:00 AM EDT eCW1 ([facility]) Unknown [address] [facility] [place] [address] 11/30/2020 12:00:00 AM EST eCW1 ([facility]) [place] [address] [facility] [address] 11/16/2020 12:00:00 AM EST eCW1 ([facility]) [place] [address] [facility] [address] 11/06/2020 12:00:00 AM EST eCW1 ([facility]) [place] [address] [facility] [address] 2020 12:00:00 AM EST eCW1 ([facility]) [place] [address] [facility] [address] 10/01/2020 12:00:00 AM EST eCW1 ([facility]) [place] [address] [facility] [address] 09/30/2020 12:00:00 AM EST eCW1 ([facility]) [place] [address] [facility] [address] 09/10/2020 12:00:00 AM EST eCW1 ([facility]) [place] [address] [facility] [address] 07/30/2020 12:00:00 AM EST eCW1 ([facility]) [place] [address] [facility] [address] 07/30/2020 12:00:00 AM EST eCW1 ([facility]) [place] [address] [facility] [address] 07/30/2020 12:00:00 AM EST eCW1 ([facility]) [place] [address] [facility] [address] 07/07/2020 12:00:00 AM EDT eCW1 ([facility]) [place] [address] [facility] [address] 07/06/2020 12:00:00 AM EDT eCW1 ([facility]) Immunizations Vaccine Date Status Description Data Source(s) COVID-19 VACC, MRNA(PFIZER)/PF 06/12/2021 12:00:00 AM EDT completed [facility] COVID-19 VACCINE Pfizer 06/12/2021 12:00:00 AM EDT completed [facility] Vaccine Series Complete: YESThis Data wa s Submitted to [facility] COVID-19 VACC, MRNA(PFIZER)/PF 05/22/2021 12:00:00 AM EDT completed [facility] COVID-19 VACCINE Pfizer 05/22/2021 12:00:00 AM EDT completed [facility] Vaccine Series Complete: NOThis Data was Submitted to [facility]. Medications Medication Brand Name Start Date Product Form Dose Route Admi nistrative Instructions Pharmacy Instructions Status Indications Reaction Description Data Source(s) Levothyroxine Sodium 0.1 MG Oral Tablet [Synthroid] Sy nthroid 100 MCG Synthroid 100 MCG 06/02/2021 12:00:00 AM EDT active Synthroid 100 MCG eCW1 ([facility]) 50 mg 05/17/2021 12:00:00 AM EDT tablet 30 TAKE ONE TABLET BY MOUTH EVERY DAY TAKE ONE TABLET BY MOUTH EVERY DAY SOLD: 07/16/2021 [facility] Spironolactone 50 MG Oral Tablet Spironolactone 50 MG 2020 12:00:00 AM EDT 1.0 {tablet} active Spironolact one 50 MG eCW1 ([facility]) Spironolactone 50 MG Oral Tablet Spironolactone 50 MG 2020 12:00:00 AM EDT 1.0 {tablet} active Spironolact one 50 MG eCW1 ([facility]) Spironolactone 50 MG Oral Tablet Spironolactone 50 MG 2020 12:00:00 AM EDT 1.0 {tablet} active Spironolact one 50 MG eCW1 ([facility]) Spironolactone 50 MG Oral Tablet Spironolactone 50 MG 2020 12:00:00 AM EDT 1.0 {tablet} active Spironolact one 50 MG eCW1 ([facility]) 50 mg 05/17/2021 12:00:00 AM EDT tablet [...] AM EDT active Euthyrox 100 MCG eCW1 ([facility]) Levothyroxine Sodium 0.1 MG Oral Tablet [Euthyrox] Eut hyrox 100 MCG Euthyrox 100 MCG 04/21/2021 12:00:00 AM EDT active Euthyrox 100 MCG eCW1 ([facility]) Levothyroxine Sodium 0.1 MG Oral Tablet [Euthyrox] Eut hyrox 100 MCG Euthyrox 100 MCG 04/21/2021 12:00:00 AM EDT active Euthyrox 100 MCG eCW1 ([facility]) Levothyroxine Sodium 0.1 MG Oral Tablet [Euthyrox] Eut hyrox 100 MCG Euthyrox 100 MCG 04/21/2021 12:00:00 AM EDT active Euthyrox 100 MCG eCW1 ([facility]) Levothyroxine Sodium 0.1 MG Oral Tablet [Euthyrox] Eut hyrox 100 MCG Euthyrox 100 MCG 04/21/2021 12:00:00 AM EDT active Euthyrox 100 MCG eCW1 ([facility]) Levothyroxine Sodium 0.1 MG Oral Tablet [Euthyrox] Eut hyrox 100 MCG Euthyrox 100 MCG 04/21/2021 12:00:00 AM EDT active Euthyrox 100 MCG eCW1 ([facility]) Levothyroxine Sodium 0.1 MG Oral Tablet [Euthyrox] Eut hyrox 100 MCG Euthyrox 100 MCG 04/21/2021 12:00:00 AM EDT active Euthyrox 100 MCG eCW1 ([facility]) Levothyroxine Sodium 0.1 MG Oral Tablet [Euthyrox] Eut hyrox 100 MCG Euthyrox 100 MCG 04/21/2021 12:00:00 AM EDT active Euthyrox 100 MCG eCW1 ([facility]) Loperamide Hydrochloride 2 MG Oral Tablet Loperamide H Cl 2 MG Loperamide HCl 2 MG 04/15/2021 12:00:00 AM EDT 1.0 {tablet_as_needed} active Loperamide HCl 2 MG eCW1 ([facility]) Loperamide Hydrochloride 2 MG Oral Tablet Loperamide H Cl 2 MG Loperamide HCl 2 MG 04/15/2021 12:00:00 AM EDT 1.0 {tablet_as_needed} active Loperamide HCl 2 MG eCW1 ([facility]) Chantix Starting Month Frederic 0.5 MG X 11 & 1 MG X 42 Peggy ntix Starting Month Frederic 0.5 MG X 11 & 1 MG X 42 04/15/2021 12:00:00 AM EDT active Chantix Starting Month Frederic 0.5 MG X 11 & 1 MG X 42 eCW1 ([facility]) Loperamide Hydrochloride 2 MG Oral Tablet Loperamide H Cl 2 MG Loperamide HCl 2 MG 04/15/2021 12:00:00 AM EDT 1.0 {tablet_as_needed} active Loperamide HCl 2 MG eCW1 ([facility]) Loperamide Hydrochloride 2 MG Oral Tablet Loperamide H Cl 2 MG Loperamide HCl 2 MG 04/15/2021 12:00:00 AM EDT 1.0 {tablet_as_needed} active Loperamide HCl 2 MG eCW1 ([facility]) Chantix Starting Month Frederic 0.5 MG X 11 & 1 MG X 42 Peggy ntix Starting Month Frederic 0.5 MG X 11 & 1 MG X 42 04/15/2021 12:00:00 AM EDT active Chantix Starting Month Frederic 0.5 MG X 11 & 1 MG X 42 eCW1 ([facility]) Chantix Starting Month Frederic 0.5 MG X 11 & 1 MG X 42 Peggy ntix Starting Month Frederic 0.5 MG X 11 & 1 MG X 42 04/15/2021 12:00:00 AM EDT active Chantix Starting Month Frederic 0.5 MG X 11 & 1 MG X 42 eCW1 ([facility]) Chantix Starting Month Frederic 0.5 MG X 11 & 1 MG X 42 Peggy ntix Starting Month Frederic 0.5 MG X 11 & 1 MG X 42 04/15/2021 12:00:00 AM EDT active Chantix Starting Month Frederic 0.5 MG X 11 & 1 MG X 42 eCW1 ([facility]) Loperamide Hydrochloride 2 MG Oral Tablet Loperamide H Cl 2 MG Loperamide HCl 2 MG 04/15/2021 12:00:00 AM EDT 1.0 {tablet_as_needed} active Loperamide HCl 2 MG eCW1 ([facility]) Loperamide Hydrochloride 2 MG Oral Tablet Loperamide H Cl 2 MG Loperamide HCl 2 MG 04/15/2021 12:00:00 AM EDT 1.0 {tablet_as_needed} active Loperamide HCl 2 MG eCW1 ([facility]) Levothyroxine Sodium 0.1 MG Oral Tablet [Synthroid] Sy nthroid 100 MCG Synthroid 100 MCG 04/15/2021 12:00:00 AM EDT active Synthroid 100 MCG eCW1 ([facility]) 2 mg 04/15/2021 12:00:00 AM EDT tablet 30 TAKE ONE TABLET BY MOUTH EVERY DAY NEEDED TAKE ONE TABLET BY MOUTH EVERY DAY NEEDED SOLD: 04/22/2021 [facility] Loperamide Hydrochloride 2 MG Oral Tablet Loperamide H Cl 2 MG Loperamide HCl 2 MG 04/15/2021 12:00:00 AM EDT 1.0 {tablet_as_needed} active Loperamide HCl 2 MG eCW1 ([facility]) Chantix Starting Month Frederic 0.5 MG X 11 & 1 MG X 42 Peggy ntix Starting Month Frederic 0.5 MG X 11 & 1 MG X 42 04/15/2021 12:00:00 AM EDT active Chantix Starting Month Frederic 0.5 MG X 11 & 1 MG X 42 eCW1 ([facility]) Levothyroxine Sodium 0.1 MG Oral Tablet [Synthroid] Sy nthroid 100 MCG Synthroid 100 MCG 04/15/2021 12:00:00 AM EDT active Synthroid 100 MCG eCW1 ([facility]) Chantix Starting Month Frederic 0.5 MG X 11 & 1 MG X 42 Peggy ntix Starting Month Frederic 0.5 MG X 11 & 1 MG X 42 04/15/2021 12:00:00 AM EDT active Chantix Starting Month Frederic 0.5 MG X 11 & 1 MG X 42 eCW1 ([facility]) Loperamide Hydrochloride 2 MG Oral Tablet Loperamide H Cl 2 MG Loperamide HCl 2 MG 04/15/2021 12:00:00 AM EDT 1.0 {tablet_as_needed} active Loperamide HCl 2 MG eCW1 ([facility]) Chantix Starting Month Frederic 0.5 MG X 11 & 1 MG X 42 Peggy ntix Starting Month Frederic 0.5 MG X 11 & 1 MG X 42 04/15/2021 12:00:00 AM EDT active Chantix Starting Month Frederic 0.5 MG X 11 & 1 MG X 42 eCW1 ([facility]) Chantix Starting Month Frederic 0.5 MG X 11 & 1 MG X 42 Peggy ntix Starting Month Frederic 0.5 MG X 11 & 1 MG X 42 04/15/2021 12:00:00 AM EDT active Chantix Starting Month Frederic 0.5 MG X 11 & 1 MG X 42 eCW1 ([facility]) Loperamide Hydrochloride 2 MG Oral Tablet Loperamide H Cl 2 MG Loperamide HCl 2 MG 04/15/2021 12:00:00 AM EDT 1.0 {tablet_as_needed} active Loperamide HCl 2 MG eCW1 ([facility]) Chantix Starting Month Frederic 0.5 MG X 11 & 1 MG X 42 Peggy ntix Starting Month Frederic 0.5 MG X 11 & 1 MG X 42 04/15/2021 12:00:00 AM EDT active Chantix Starting Month Frederic 0.5 MG X 11 & 1 MG X 42 eCW1 ([facility]) Chantix Starting Month Frederic 0.5 MG X 11 & 1 MG X 42 Peggy ntix Starting Month Frederic 0.5 MG X 11 & 1 MG X 42 04/15/2021 12:00:00 AM EDT active Chantix Starting Month Frederic 0.5 MG X 11 & 1 MG X 42 eCW1 ([facility]) Loperamide Hydrochloride 2 MG Oral Tablet Loperamide H Cl 2 MG Loperamide HCl 2 MG 04/15/2021 12:00:00 AM EDT 1.0 {tablet_as_needed} active Loperamide HCl 2 MG eCW1 ([facility]) 1 mg 04/14/2021 12:00:00 AM EDT tablet 56 USE A S DIRECTED USE DIRECTED SOLD: 05/28/2021 [facility] 1 mg 04/14/2021 12:00:00 AM EDT tablet 56 USE A S DIRECTED USE DIRECTED SOLD: 04/22/2021 [facility] Chantix Continuing Month Frederic 1 MG Chantix Continuing Month P ak 1 MG 04/05/2021 12:00:00 AM EDT active Chantix Continuing Month Frederic 1 MG eCW1 ([facility]) Chantix Continuing Month Frederic 1 MG Chantix Continuing Month P ak 1 MG 04/05/2021 12:00:00 AM EDT active Chantix Continuing Month Frederic 1 MG eCW1 ([facility]) Chantix Continuing Month Frederic 1 MG Chantix Continuing Month P ak 1 MG 04/05/2021 12:00:00 AM EDT active Chantix Continuing Month Frederic 1 MG eCW1 ([facility]) Chantix Continuing Month Frederic 1 MG Chantix Continuing Month P ak 1 MG 04/05/2021 12:00:00 AM EDT active Chantix Continuing Month Frederic 1 MG eCW1 ([facility]) Chantix Continuing Month Frederic 1 MG Chantix Continuing Month P ak 1 MG 04/05/2021 12:00:00 AM EDT active Chantix Continuing Month Frederic 1 MG eCW1 ([facility]) Chantix Continuing Month Frederic 1 MG Chantix Continuing Month P ak 1 MG 04/05/2021 12:00:00 AM EDT active Chantix Continuing Month Frederic 1 MG eCW1 ([facility]) Chantix Continuing Month Frederic 1 MG Chantix Continuing Month P ak 1 MG 04/05/2021 12:00:00 AM EDT active Chantix Continuing Month Frederic 1 MG eCW1 ([facility]) Chantix Continuing Month Frederic 1 MG Chantix Continuing Month P ak 1 MG 04/05/2021 12:00:00 AM EDT active Chantix Continuing Month Frederic 1 MG eCW1 ([facility]) Chantix Continuing Month Frederic 1 MG Chantix Continuing Month P ak 1 MG 04/05/2021 12:00:00 AM EDT active Chantix Continuing Month Frederic 1 MG eCW1 ([facility]) Chantix Continuing Month Frederic 1 MG Chantix Continuing Month P ak 1 MG 04/05/2021 12:00:00 AM EDT active Chantix Continuing Month Frederic 1 MG eCW1 ([facility]) Chantix Continuing Month Frederic 1 MG Chantix Continuing Month P ak 1 MG 04/05/2021 12:00:00 AM EDT active Chantix Continuing Month Frederic 1 MG eCW1 ([facility]) Chantix Continuing Month Frederic 1 MG Chantix Continuing Month P ak 1 MG 04/05/2021 12:00:00 AM EDT active Chantix Continuing Month Frederic 1 MG eCW1 ([facility]) Chantix Continuing Month Frederic 1 MG Chantix Continuing Month P ak 1 MG 04/05/2021 12:00:00 AM EDT active Chantix Continuing Month Frederic 1 MG eCW1 ([facility]) 0.5 mg (11)- 1 mg (42) 02/15/2021 12:00:00 AM EDT tablets,do se pack 53 USE DIRECTED DAILY USE DIRECTED DAILY SOLD: 02/15/2021 [facility] Amitriptyline Hydrochloride 10 MG Oral Tablet Amitript yline HCl 10 MG Amitriptyline HCl 10 MG 02/11/2021 12:00:00 AM EDT 1.0 {tablet_at_b edtime} active Amitriptyline HCl 10 MG e CW1 ([facility]) 10 mg 02/11/2021 12:00:00 AM EDT tablet 30 TAKE ONE TABLET BY MOUTH EVERY DAY AT BEDTIME TAKE ONE TABLET BY MOUTH EVERY DAY AT BEDTIME SOLD: 02/15/2021 [facility] Amitriptyline Hydrochloride 10 MG Oral Tablet Amitript yline HCl 10 MG Amitriptyline HCl 10 MG 02/11/2021 12:00:00 AM EDT 1.0 {tablet_at_b edtime} active Amitriptyline HCl 10 MG e CW1 ([facility]) Chantix Starting Month Frederic 0.5 MG X 11 & 1 MG X 42 Peggy ntix Starting Month Frederic 0.5 MG X 11 & 1 MG X 42 02/11/2021 12:00:00 AM EDT active Chantix Starting Month Frederic 0.5 MG X 11 & 1 MG X 42 eCW1 ([facility]) Amitriptyline Hydrochloride 10 MG Oral Tablet Amitript yline HCl 10 MG Amitriptyline HCl 10 MG 02/11/2021 12:00:00 AM EDT 1.0 {tablet_at_b edtime} active Amitriptyline HCl 10 MG e CW1 ([facility]) Amitriptyline Hydrochloride 10 MG Oral Tablet Amitript yline HCl 10 MG Amitriptyline HCl 10 MG 02/11/2021 12:00:00 AM EDT 1.0 {tablet_at_b edtime} active Amitriptyline HCl 10 MG e 1 ([facility]) 0.1 % 12/23/2020 12:00:00 AM EDT cream [...] EDT active Levothyroxine Sodium 100 MCG eCW1 ([facility]) Levothyroxine Sodium 0.1 MG Oral Tablet Levothyroxine Sodium 100 MCG Levothyroxine Sodium 100 MCG 12/10/2020 12:00:00 AM EDT active Levothyroxine Sodium 100 MCG eCW1 ([facility]) Levothyroxine Sodium 0.1 MG Oral Tablet Levothyroxine Sodium 100 MCG Levothyroxine Sodium 100 MCG 12/10/2020 12:00:00 AM EDT active Levothyroxine Sodium 100 MCG eCW1 ([facility]) Levothyroxine Sodium 0.1 MG Oral Tablet Levothyroxine Sodium 100 MCG Levothyroxine Sodium 100 MCG 12/10/2020 12:00:00 AM EDT active Levothyroxine Sodium 100 MCG eCW1 ([facility]) Levothyroxine Sodium 0.1 MG Oral Tablet Levothyroxine Sodium 100 MCG Levothyroxine Sodium 100 MCG 12/10/2020 12:00:00 AM EDT active Levothyroxine Sodium 100 MCG eCW1 ([facility]) Levothyroxine Sodium 0.1 MG Oral Tablet Levothyroxine Sodium 100 MCG Levothyroxine Sodium 100 MCG 12/10/2020 12:00:00 AM EDT active Levothyroxine Sodium 100 MCG eCW1 ([facility]) Levothyroxine Sodium 0.1 MG Oral Tablet Levothyroxine Sodium 100 MCG Levothyroxine Sodium 100 MCG 12/10/2020 12:00:00 AM EDT active Levothyroxine Sodium 100 MCG eCW1 ([facility]) 88 mcg 11/30/2020 12:00:00 AM EST tablet [...] acti ve Clindamycin Phosphate 1 % eCW1 ([facility]) Tretinoin 1 MG/ML Topical Cream Tretinoin 0.1 % Tretinoin 0. 1 % 09/10/2020 12:00:00 AM EST active Tretinoi n 0.1 % eCW1 ([facility]) Clindamycin 0.01 MG/MG Topical Gel Clindamycin Phospha te 1 % Clindamycin Phosphate 1 % 09/10/2020 12:00:00 AM EST susp ended Clindamycin Phosphate 1 % eCW1 ([facility]) Tretinoin 1 MG/ML Topical Cream Tretinoin 0.1 % Tretinoin 0. 1 % 09/10/2020 12:00:00 AM EST active Tretinoi n 0.1 % eCW1 ([facility]) Tretinoin 0.0005 MG/MG Topical Gel Tretinoin 0.05 % Tretinoi n 0.05 % 09/10/2020 12:00:00 AM EST active Tretinoi n 0.05 % eCW1 ([facility]) Clindamycin 0.01 MG/MG Topical Gel Clindamycin Phospha te 1 % Clindamycin Phosphate 1 % 09/10/2020 12:00:00 AM EST susp ended Clindamycin Phosphate 1 % eCW1 ([facility]) Tretinoin 0.0005 MG/MG Topical Gel Tretinoin 0.05 % Tretinoi n 0.05 % 09/10/2020 12:00:00 AM EST active Tretinoi n 0.05 % eCW1 ([facility]) Tretinoin 0.0005 MG/MG Topical Gel Tretinoin 0.05 % Tretinoi n 0.05 % 09/10/2020 12:00:00 AM EST active Tretinoi n 0.05 % eCW1 ([facility]) Tretinoin 1 MG/ML Topical Cream Tretinoin 0.1 % Tretinoin 0. 1 % 09/10/2020 12:00:00 AM EST active Tretinoi n 0.1 % eCW1 ([facility]) Clindamycin 0.01 MG/MG Topical Gel Clindamycin Phospha te 1 % Clindamycin Phosphate 1 % 09/10/2020 12:00:00 AM EST acti ve Clindamycin Phosphate 1 % eCW1 ([facility]) Clindamycin 0.01 MG/MG Topical Gel Clindamycin Phospha te 1 % Clindamycin Phosphate 1 % 09/10/2020 12:00:00 AM EST acti ve Clindamycin Phosphate 1 % eCW1 ([facility]) Tretinoin 0.0005 MG/MG Topical Gel Tretinoin 0.05 % Tretinoi n 0.05 % 09/10/2020 12:00:00 AM EST active Tretinoi n 0.05 % eCW1 ([facility]) Clindamycin 0.01 MG/MG Topical Gel Clindamycin Phospha te 1 % Clindamycin Phosphate 1 % 09/10/2020 12:00:00 AM EST susp ended Clindamycin Phosphate 1 % eCW1 ([facility]) Tretinoin 1 MG/ML Topical Cream Tretinoin 0.1 % Tretinoin 0. 1 % 09/10/2020 12:00:00 AM EST active Tretinoi n 0.1 % eCW1 ([facility]) Clindamycin 0.01 MG/MG Topical Gel Clindamycin Phospha te 1 % Clindamycin Phosphate 1 % 09/10/2020 12:00:00 AM EST acti ve Clindamycin Phosphate 1 % eCW1 ([facility]) Clindamycin 0.01 MG/MG Topical Gel Clindamycin Phospha te 1 % Clindamycin Phosphate 1 % 09/10/2020 12:00:00 AM EST acti ve Clindamycin Phosphate 1 % eCW1 ([facility]) Tretinoin 1 MG/ML Topical Cream Tretinoin 0.1 % Tretinoin 0. 1 % 09/10/2020 12:00:00 AM EST active Tretinoi n 0.1 % eCW1 ([facility]) Clindamycin 0.01 MG/MG Topical Gel Clindamycin Phospha te 1 % Clindamycin Phosphate 1 % 09/10/2020 12:00:00 AM EST acti ve Clindamycin Phosphate 1 % eCW1 ([facility]) Tretinoin 1 MG/ML Topical Cream Tretinoin 0.1 % Tretinoin 0. 1 % 09/10/2020 12:00:00 AM EST active Tretinoi n 0.1 % eCW1 ([facility]) Tretinoin 0.0005 MG/MG Topical Gel Tretinoin 0.05 % Tretinoi n 0.05 % 09/10/2020 12:00:00 AM EST active Tretinoi n 0.05 % eCW1 ([facility]) Clindamycin 0.01 MG/MG Topical Gel Clindamycin Phospha te 1 % Clindamycin Phosphate 1 % 09/10/2020 12:00:00 AM EST susp ended Clindamycin Phosphate 1 % eCW1 ([facility]) Tretinoin 0.0005 MG/MG Topical Gel Tretinoin 0.05 % Tretinoi n 0.05 % 09/10/2020 12:00:00 AM EST active Tretinoi n 0.05 % eCW1 ([facility]) Tretinoin 1 MG/ML Topical Cream Tretinoin 0.1 % Tretinoin 0. 1 % 09/10/2020 12:00:00 AM EST active Tretinoi n 0.1 % eCW1 ([facility]) Clindamycin 0.01 MG/MG Topical Gel Clindamycin Phospha te 1 % Clindamycin Phosphate 1 % 09/10/2020 12:00:00 AM EST acti ve Clindamycin Phosphate 1 % eCW1 ([facility]) Clindamycin 0.01 MG/MG Topical Gel Clindamycin Phospha te 1 % Clindamycin Phosphate 1 % 09/10/2020 12:00:00 AM EST acti ve Clindamycin Phosphate 1 % eCW1 ([facility]) Tretinoin 0.0005 MG/MG Topical Gel Tretinoin 0.05 % Tretinoi n 0.05 % 09/10/2020 12:00:00 AM EST active Tretinoi n 0.05 % eCW1 ([facility]) Clindamycin 0.01 MG/MG Topical Gel Clindamycin Phospha te 1 % Clindamycin Phosphate 1 % 09/10/2020 12:00:00 AM EST acti ve Clindamycin Phosphate 1 % eCW1 ([facility]) Tretinoin 1 MG/ML Topical Cream Tretinoin 0.1 % Tretinoin 0. 1 % 09/10/2020 12:00:00 AM EST active Tretinoi n 0.1 % eCW1 ([facility]) Tretinoin 1 MG/ML Topical Cream Tretinoin 0.1 % Tretinoin 0. 1 % 09/10/2020 12:00:00 AM EST active Tretinoi n 0.1 % eCW1 ([facility]) Tretinoin 1 MG/ML Topical Cream Tretinoin 0.1 % Tretinoin 0. 1 % 09/10/2020 12:00:00 AM EST active Tretinoi n 0.1 % eCW1 ([facility]) Tretinoin 1 MG/ML Topical Cream Tretinoin 0.1 % Tretinoin 0. 1 % 09/10/2020 12:00:00 AM EST active Tretinoi n 0.1 % eCW1 ([facility]) Tretinoin 0.0005 MG/MG Topical Gel Tretinoin 0.05 % Tretinoi n 0.05 % 09/10/2020 12:00:00 AM EST active Tretinoi n 0.05 % eCW1 ([facility]) Clindamycin 0.01 MG/MG Topical Gel Clindamycin Phospha te 1 % Clindamycin Phosphate 1 % 09/10/2020 12:00:00 AM EST acti ve Clindamycin Phosphate 1 % eCW1 ([facility]) Clindamycin 0.01 MG/MG Topical Gel Clindamycin Phospha te 1 % Clindamycin Phosphate 1 % 09/10/2020 12:00:00 AM EST acti ve Clindamycin Phosphate 1 % eCW1 ([facility]) 1 % 09/10/2020 12:00:00 AM EST gel 30 USE 1 APPLICATION TO FACE ONCE A DAY EXTERNALLY FOR 30 DAYS USE 1 APPLICATION TO FACE ONCE A DAY EXT ERNALLY FOR 30 DAYS SOLD: 09/13/2020 [facility] Tretinoin 1 MG/ML Topical Cream Tretinoin 0.1 % Tretinoin 0. 1 % 09/10/2020 12:00:00 AM EST active Tretinoi n 0.1 % eCW1 ([facility]) Clindamycin 0.01 MG/MG Topical Gel Clindamycin Phospha te 1 % Clindamycin Phosphate 1 % 09/10/2020 12:00:00 AM EST acti ve Clindamycin Phosphate 1 % eCW1 ([facility]) Clindamycin 0.01 MG/MG Topical Gel Clindamycin Phospha te 1 % Clindamycin Phosphate 1 % 09/10/2020 12:00:00 AM EST susp ended Clindamycin Phosphate 1 % eCW1 ([facility]) Clindamycin 0.01 MG/MG Topical Gel Clindamycin Phospha te 1 % Clindamycin Phosphate 1 % 09/10/2020 12:00:00 AM EST acti ve Clindamycin Phosphate 1 % eCW1 ([facility]) Tretinoin 1 MG/ML Topical Cream Tretinoin 0.1 % Tretinoin 0. 1 % 09/10/2020 12:00:00 AM EST active Tretinoi n 0.1 % eCW1 ([facility]) Clindamycin 0.01 MG/MG Topical Gel Clindamycin Phospha te 1 % Clindamycin Phosphate 1 % 09/10/2020 12:00:00 AM EST acti ve Clindamycin Phosphate 1 % eCW1 ([facility]) Tretinoin 1 MG/ML Topical Cream Tretinoin 0.1 % Tretinoin 0. 1 % 09/10/2020 12:00:00 AM EST active Tretinoi n 0.1 % eCW1 ([facility]) Clindamycin 0.01 MG/MG Topical Gel Clindamycin Phospha te 1 % Clindamycin Phosphate 1 % 09/10/2020 12:00:00 AM EST acti ve Clindamycin Phosphate 1 % eCW1 ([facility]) Clindamycin 0.01 MG/MG Topical Gel Clindamycin Phospha te 1 % Clindamycin Phosphate 1 % 09/10/2020 12:00:00 AM EST susp ended Clindamycin Phosphate 1 % eCW1 ([facility]) Clindamycin 0.01 MG/MG Topical Gel Clindamycin Phospha te 1 % Clindamycin Phosphate 1 % 09/10/2020 12:00:00 AM EST acti ve Clindamycin Phosphate 1 % eCW1 ([facility]) Clindamycin 0.01 MG/MG Topical Gel Clindamycin Phospha te 1 % Clindamycin Phosphate 1 % 09/10/2020 12:00:00 AM EST acti ve Clindamycin Phosphate 1 % eCW1 ([facility]) Tretinoin 1 MG/ML Topical Cream Tretinoin 0.1 % Tretinoin 0. 1 % 09/10/2020 12:00:00 AM EST active Tretinoi n 0.1 % eCW1 ([facility]) Clindamycin 0.01 MG/MG Topical Gel Clindamycin Phospha te 1 % Clindamycin Phosphate 1 % 09/10/2020 12:00:00 AM EST susp ended Clindamycin Phosphate 1 % eCW1 ([facility]) Tretinoin 1 MG/ML Topical Cream Tretinoin 0.1 % Tretinoin 0. 1 % 09/10/2020 12:00:00 AM EST active Tretinoi n 0.1 % eCW1 ([facility]) 0.025 % 08/01/2020 12:00:00 AM EST cream [...] N AN EMPTY STOMACH SOLD: 10/06/2020 [facility] Tretinoin 0.25 MG/ML Topical Cream Tretinoin 0.025 % Tretino in 0.025 % 07/30/2020 12:00:00 AM EST active Tretinoin 0.025 % eCW1 ([facility]) Levothyroxine Sodium 0.088 MG Oral Tablet Levothyroxin e Sodium 88 MCG Levothyroxine Sodium 88 MCG 07/30/2020 12:00:00 AM EST active Levothyroxine Sodium 88 MCG eCW1 ([facility]) Levothyroxine Sodium 0.088 MG Oral Tablet Levothyroxin e Sodium 88 MCG Levothyroxine Sodium 88 MCG 07/30/2020 12:00:00 AM EST active Levothyroxine Sodium 88 MCG eCW1 ([facility]) Levothyroxine Sodium 0.088 MG Oral Tablet Levothyroxin e Sodium 88 MCG Levothyroxine Sodium 88 MCG 07/30/2020 12:00:00 AM EST active Levothyroxine Sodium 88 MCG eCW1 ([facility]) Levothyroxine Sodium 0.088 MG Oral Tablet Levothyroxin e Sodium 88 MCG Levothyroxine Sodium 88 MCG 07/30/2020 12:00:00 AM EST active Levothyroxine Sodium 88 MCG eCW1 ([facility]) Levothyroxine Sodium 0.088 MG Oral Tablet Levothyroxin e Sodium 88 MCG Levothyroxine Sodium 88 MCG 07/30/2020 12:00:00 AM EST active Levothyroxine Sodium 88 MCG eCW1 ([facility]) Levothyroxine Sodium 0.088 MG Oral Tablet Levothyroxin e Sodium 88 MCG Levothyroxine Sodium 88 MCG 07/30/2020 12:00:00 AM EST active Levothyroxine Sodium 88 MCG eCW1 ([facility]) Levothyroxine Sodium 0.088 MG Oral Tablet Levothyroxin e Sodium 88 MCG Levothyroxine Sodium 88 MCG 07/30/2020 12:00:00 AM EST active Levothyroxine Sodium 88 MCG eCW1 ([facility]) Tretinoin 0.25 MG/ML Topical Cream Tretinoin 0.025 % Tretino in 0.025 % 07/30/2020 12:00:00 AM EST active Tretinoin 0.025 % eCW1 ([facility]) Tretinoin 0.25 MG/ML Topical Cream Tretinoin 0.025 % Tretino in 0.025 % 07/30/2020 12:00:00 AM EST active Tretinoin 0.025 % eCW1 ([facility]) Levothyroxine Sodium 0.088 MG Oral Tablet Levothyroxin e Sodium 88 MCG Levothyroxine Sodium 88 MCG 07/30/2020 12:00:00 AM EST active Levothyroxine Sodium 88 MCG eCW1 ([facility]) Levothyroxine Sodium 0.088 MG Oral Tablet Levothyroxin e Sodium 88 MCG Levothyroxine Sodium 88 MCG 07/30/2020 12:00:00 AM EST active Levothyroxine Sodium 88 MCG eCW1 ([facility]) Levothyroxine Sodium 0.088 MG Oral Tablet Levothyroxin e Sodium 88 MCG Levothyroxine Sodium 88 MCG 07/30/2020 12:00:00 AM EST active Levothyroxine Sodium 88 MCG eCW1 ([facility]) Insurance Providers Payer name Policy type / Coverage type Policy ID Covered libertarian ID Covered libertarian's relationship to haas Policy Haas Plan Information [facility] 302/307 [id number] SP [id number] [employer]BS B [id number] P [id number] [facility] 302/307 [id number] SP [id number] ANSI-Medicaid [id number] ANSI-Not a Secondary Insurance [id number] ANSI-Medicaid [id number] ANSI-Commercial [id number] ANSI-Medicaid [id number] ANSI-Medicaid [id number] [id number] SP [id number] ANSI-Not a Secondary Insurance [id number] ANSI-Medicaid [id number] ANSI-Medicaid [id number] ANSI-Medicaid [id number] ANSI-Medicaid [id number] ANSI-Not a Secondary Insurance [id number] ANSI-Medicaid [id number] ANSI-Medicaid [id number] ANSI-Medicaid [id number] ANSI-Medicaid [id number] ANSI-Medicaid [id number] ANSI-Medicaid [id number] ANSI-Medicaid [id number] ANSI-Medicaid [id number] ANSI-Not a Secondary Insurance [id number] ANSI-Not a Secondary Insurance [id number] ANSI-Medicaid [id number] ANSI-Medicaid [id number] ANSI-Medicaid [id number] ANSI-Medicaid [id number] ANSI-Medicaid [id number] ANSI-Medicaid [id number] ANSI-Not a Secondary Insurance [id number] ANSI-Medicaid [id number] ANSI-Not a Secondary Insurance [id number] ANSI-Medicaid [id number] ANSI-Medicaid [id number] [facility] [id number] ANSI-Medicaid [id number] ANSI-Medicaid [id number] ANSI-Medicaid [id number] ANSI-Not a Secondary Insurance [id number] ANSI-Not a Secondary Insurance [id number] ANSI-Medicaid [id number] ANSI-Medicaid [id number] ANSI-Medicaid [id number] ANSI-Medicaid [id number] ANSI-Not a Secondary Insurance [id number] ANSI-Medicaid [id number] ANSI-Medicaid [id number] ANSI-Medicaid [id number] ANSI-Medicaid [id number] ANSI-Not a Secondary Insurance [id number] ANSI-Medicaid [id number] [facility] [id number] SP [id number] ANSI-Medicaid [id number] ANSI-Medicaid [id number] ANSI-Not a Secondary Insurance [id number] SELF PAY ONLY - [id number] SP [id number] ANSI-Medicaid [id number] ANSI-Medicaid [id number] ANSI-Not a Secondary Insurance [id number] ANSI-Medicaid [id number] ANSI-Medicaid [id number] ANSI-Medicaid [id number] ANSI-Medicaid [id number] ANSI-Medicaid [id number] ANSI-Medicaid [id number] ANSI-Medicaid [id number] ANSI-Medicaid [id number] ANSI-Medicaid [id number] ANSI-Medicaid [id number] ANSI-Medicaid [id number] ANSI-Medicaid [id number] ANSI-Medicaid [id number] ANSI-Medicaid [id number] ANSI-Medicaid [id number] ANSI-Medicaid [id number] ANSI-Medicaid [id number] ANSI-Medicaid [id number] ANSI-Medicaid [id number] ANSI-Medicaid [id number] [facility] Community Plan Commercial [id number] Self [id number] [facility]) O [id number] S [id number] [employer] [facility] [id number] SP [id number] [employer] [id number] SP [id number] [facility] [id number] SP [id number] [facility] [id number] S [id number] SELF PAY UNAVAILABLE SP UNAVAILA BLE [facility]/P [id number] Problems, Conditions, and Diagnoses Code Display Name Description Problem Type Effective Dates Data Source(s) N93.9 [id number] Abnormal uterine bleeding (AUB) Problem 05/07/2021 12:00:00 AM EDT eCW1 ([facility]) N93.0 [id number] Postcoital bleeding Problem 11/06/2020 12:00 :00 AM EST eCW1 ([facility]) N93.9 [id number] Abnormal uterine bleeding (AUB) Problem 11/06/2020 12:00:00 AM EST eCW1 ([facility]) N93.9 [id number] Abnormal uterine bleeding Problem 10/12/2020 12:00:00 AM EST eCW1 ([facility]) N92.3 [id number] Intermenstrual bleeding Problem 10/01/2020 1 2:00:00 AM EST eCW1 ([facility]) Surgeries/Procedures No Information Results ID Date Data Source FREE T4 & TSH PANEL 10/01/2020 12:00:00 AM EST eCW1 ([facility]) Name Value Range Interpretation Code Description Data Maria Luisa rce(s) Supporting Document(s) 2.770 0.358-3.740 THYROID STIMULATING HORM ONE eCW1 ([facility]) 1.43 0.76-1.46 FREE T4 eCW1 ([facility]) Procedure Social History Code Duration Value Status Description Data Source(s ) Smoking 05/17/2021 12:00:00 AM EDT Current Smoker completed Curre nt Smoker eCW1 ([facility]) Smoking 05/17/2021 12:00:00 AM EDT Current Smoker completed Curre nt Smoker eCW1 ([facility]) Smoking 05/17/2021 12:00:00 AM EDT Current Smoker completed Curre nt Smoker eCW1 ([facility]) Smoking 05/17/2021 12:00:00 AM EDT Current Smoker completed Curre nt Smoker eCW1 ([facility]) Smoking 05/10/2021 12:00:00 AM EDT Current Smoker completed Curre nt Smoker eCW1 ([facility]) Smoking 04/28/2021 12:00:00 AM EDT Current Smoker completed Curre nt Smoker eCW1 ([facility]) Smoking 04/28/2021 12:00:00 AM EDT Current Smoker completed Curre nt Smoker eCW1 ([facility]) Smoking 04/15/2021 12:00:00 AM EDT Current Smoker completed Curre nt Smoker eCW1 ([facility]) Smoking 04/15/2021 12:00:00 AM EDT Current Smoker completed Curre nt Smoker eCW1 ([facility]) Smoking 04/15/2021 12:00:00 AM EDT Current Smoker completed Curre nt Smoker eCW1 ([facility]) Smoking 02/11/2021 12:00:00 AM EDT Current Smoker completed Curre nt Smoker eCW1 ([facility]) Smoking 02/11/2021 12:00:00 AM EDT Current Smoker completed Curre nt Smoker eCW1 ([facility]) Smoking 02/11/2021 12:00:00 AM EDT Current Smoker completed Curre nt Smoker eCW1 ([facility]) Smoking 02/11/2021 12:00:00 AM EDT Current Smoker completed Curre nt Smoker eCW1 ([facility]) Smoking 11/16/2020 12:00:00 AM EST Current Smoker completed Curre nt Smoker eCW1 ([facility]) Smoking 11/16/2020 12:00:00 AM EST Current Smoker completed Curre nt Smoker eCW1 ([facility]) Smoking 11/16/2020 12:00:00 AM EST Current Smoker completed Curre nt Smoker eCW1 ([facility]) Smoking 11/16/2020 12:00:00 AM EST Current Smoker completed Curre nt Smoker eCW1 ([facility]) Smoking 11/16/2020 12:00:00 AM EST Current Smoker completed Curre nt Smoker eCW1 ([facility]) Smoking 11/06/2020 12:00:00 AM EST Current Smoker completed Curre nt Smoker eCW1 ([facility]) Smoking 10/01/2020 12:00:00 AM EST Current Smoker completed Curre nt Smoker eCW1 ([facility]) Smoking 10/01/2020 12:00:00 AM EST Current Smoker completed Curre nt Smoker eCW1 ([facility]) Smoking 10/01/2020 12:00:00 AM EST Current Smoker completed Curre nt Smoker eCW1 ([facility]) Smoking 09/10/2020 12:00:00 AM EST Current Smoker completed Curre nt Smoker eCW1 ([facility]) Smoking 07/30/2020 12:00:00 AM EST Current Smoker completed Curre nt Smoker eCW1 ([facility]) Smoking 07/30/2020 12:00:00 AM EST Current Smoker completed Curre nt Smoker eCW1 ([facility]) Smoking 07/30/2020 12:00:00 AM EST Current Smoker completed Curre nt Smoker eCW1 ([facility]) Vital Signs ID Date Data Source UNK Name Value Range Interpretation Code Description Data Source(s) Body weight 160.4 [lb_av] 160.4 [lb_av] eCW1 ([facility]) Body weight 72.76 kg 72.76 kg eCW1 ([facility]) Body height 64 [in_i] 64 [in_i] eCW1 ([facility]) Body mass index (BMI) [Ratio] 27.53 kg/m2 27.53 kg/m2 eCW1 ([facility]) Systolic blood pressure 116 mm[Hg] 116 mm[Hg] e CW1 ([facility]) Diastolic blood pressure 80 mm[Hg] 80 mm[Hg] eCW1 ([facility]) Body weight 156 [lb_av] 156 [lb_av] eCW1 ([facility]) Body weight 70.76 kg 70.76 kg eCW1 ([facility]) Body height 64 [in_i] 64 [in_i] eCW1 ([facility]) Body mass index (BMI) [Ratio] 26.77 kg/m2 26.77 kg/m2 eCW1 ([facility]) Systolic blood pressure 118 mm[Hg] 118 mm[Hg] e CW1 ([facility]) Diastolic blood pressure 82 mm[Hg] 82 mm[Hg] eCW1 ([facility]) Body mass index (BMI) [Ratio] 27.15 kg/m2 27.15 kg/m2 W1 ([facility]) Body weight 158.2 [lb_av] 158.2 [lb_av] eCW1 ([facility]) Body height 64 [in_i] 64 [in_i] eCW1 ([facility]) Systolic blood pressure 122 mm[Hg] 122 mm[Hg] e CW1 ([facility]) Diastolic blood pressure 80 mm[Hg] 80 mm[Hg] eCW1 ([facility]) Body weight 156 [lb_av] 156 [lb_av] eCW1 ([facility]) Body height 64 [in_i] 64 [in_i] eCW1 ([facility]) Body mass index (BMI) [Ratio] 26.77 kg/m2 26.77 kg/m2 eCW1 ([facility]) Heart rate 117 /min 117 /min eCW1 ([facility]) Respiratory rate 18 /min 18 /min eCW1 ([facility]) Body temperature 98.5 [degF] 98.5 [degF] eCW1 ( [facility]) Systolic blood pressure 142 mm[Hg] 142 mm[Hg] e CW1 ([facility]) Diastolic blood pressure 82 mm[Hg] 82 mm[Hg] eCW1 ([facility]) Body weight 154 [lb_av] 154 [lb_av] eCW1 ([facility]) Body height 64 [in_i] 64 [in_i] eCW1 ([facility]) Body mass index (BMI) [Ratio] 26.43 kg/m2 26.43 kg/m2 eCW1 ([facility]) Heart rate 111 /min 111 /min eCW1 ([facility]) Respiratory rate 18 /min 18 /min eCW1 ([facility]) Body temperature 98 [degF] 98 [degF] eCW1 ([facility]) Systolic blood pressure 110 mm[Hg] 110 mm[Hg] e CW1 ([facility]) Diastolic blood pressure 78 mm[Hg] 78 mm[Hg] eCW1 ([facility]) Body weight 154.36 [lb_av] 154.36 [lb_av] eCW1 ([facility]) Body height 64 [in_i] 64 [in_i] eCW1 ([facility]) Body mass index (BMI) [Ratio] 26.49 kg/m2 26.49 kg/m2 eCW1 ([facility]) Systolic blood pressure 110 mm[Hg] 110 mm[Hg] e CW1 ([facility]) Diastolic blood pressure 80 mm[Hg] 80 mm[Hg] eCW1 ([facility]) Body weight 153 [lb_av] 153 [lb_av] eCW1 ([facility]) Body height 64 [in_i] 64 [in_i] eCW1 ([facility]) Body mass index (BMI) [Ratio] 26.26 kg/m2 26.26 kg/m2 eCW1 ([facility]) Systolic blood pressure 124 mm[Hg] 124 mm[Hg] e CW1 ([facility]) Diastolic blood pressure 78 mm[Hg] 78 mm[Hg] eCW1 ([facility]) Body weight 69.4 kg 69.4 kg eCW1 ([facility]) Body mass index (BMI) [Ratio] 26.09 kg/m2 26.09 kg/m2 eCW1 ([facility]) Heart rate 120 /min 120 /min eCW1 ([facility]) Respiratory rate 18 /min 18 /min eCW1 ([facility]) Body temperature 98.4 [degF] 98.4 [degF] eCW1 ( [facility]) Systolic blood pressure 130 mm[Hg] 130 mm[Hg] e CW1 ([facility]) Diastolic blood pressure 80 mm[Hg] 80 mm[Hg] eCW1 ([facility]) Body weight 152 [lb_av] 152 [lb_av] eCW1 ([facility]) Body height 64 [in_i] 64 [in_i] eCW1 ([facility]) Body weight 152.0 [lb_av] 152.0 [lb_av] eCW1 ([facility]) Body height 64 [in_i] 64 [in_i] eCW1 ([facility]) Body mass index (BMI) [Ratio] 26.09 kg/m2 26.09 kg/m2 eCW1 ([facility]) Systolic blood pressure 122 mm[Hg] 122 mm[Hg] e CW1 ([facility]) Diastolic blood pressure 70 mm[Hg] 70 mm[Hg] eCW1 ([facility]) Body weight 150.0 [lb_av] 150.0 [lb_av] eCW1 ([facility]) Body height 64 [in_i] 64 [in_i] eCW1 ([facility]) Body mass index (BMI) [Ratio] 25.74 kg/m2 25.74 kg/m2 eCW1 ([facility]) Systolic blood pressure 124 mm[Hg] 124 mm[Hg] e CW1 ([facility]) Diastolic blood pressure 72 mm[Hg] 72 mm[Hg] eCW1 ([facility]) Patient Treatment Plan of Care Planned Activity Planned Date Details Description Data Source (s) Levothyroxine Sodium 0.1 MG Oral Tablet [Synthroid] 06/02/20 12:00:00 AM EDT eCW1 ([facility]) Spironolactone 50 MG Oral Tablet 05/17/2021 12:00:00 AM EDT eCW1 ([facility]) Spironolactone 50 MG Oral Tablet 05/17/2021 12:00:00 AM EDT [facility]CW1 [facility] [facility]) Spironolactone 50 MG Oral Tablet 05/17/2021 12:00:00 AM EDT eCW1 ([facility]) Spironolactone 50 MG Oral Tablet 05/17/2021 12:00:00 AM EDT eCW1 ([facility]) Levothyroxine Sodium 0.1 MG Oral Tablet [Euthyrox] 04/21/2021 12 :00:00 AM EDT eCW1 ([facility]) Chantix Starting Month Frederic 0.5 MG X 11 & 1 MG X 42 04/15/2021 12 :00:00 AM EDT eCW1 ([facility]) Loperamide Hydrochloride 2 MG Oral Tablet 04/15/2021 12:00:00 AM ED T eCW1 ([facility]) Chantix Starting Month Frederic 0.5 MG X 11 & 1 MG X 42 04/15/2021 12 :00:00 AM EDT eCW1 ([facility]) Levothyroxine Sodium 0.1 MG Oral Tablet [Synthroid] 04/15/20 12:00:00 AM EDT eCW1 ([facility]) Loperamide Hydrochloride 2 MG Oral Tablet 04/15/2021 12:00:00 AM ED T eCW1 ([facility]) Levothyroxine Sodium 0.1 MG Oral Tablet [Synthroid] 04/15/20 12:00:00 AM EDT eCW1 ([facility]) Chantix Starting Month Frederic 0.5 MG X 11 & 1 MG X 42 04/15/2021 12 :00:00 AM EDT eCW1 ([facility]) Loperamide Hydrochloride 2 MG Oral Tablet 04/15/2021 12:00:00 AM ED T eCW1 ([facility]) Chantix Continuing Month Frederic 1 MG 04/05/2021 12:00:00 AM EDT eCW1 ([facility]) Chantix Continuing Month Frederic 1 MG 04/05/2021 12:00:00 AM EDT eCW1 ([facility]) Chantix Continuing Month Frederic 1 MG 04/05/2021 12:00:00 AM EDT eCW1 ([facility]) Chantix Continuing Month Frederic 1 MG 04/05/2021 12:00:00 AM EDT eCW1 ([facility]) Chantix Continuing Month Frederic 1 MG 04/05/2021 12:00:00 AM EDT eCW1 ([facility]) Chantix Continuing Month Frederic 1 MG 04/05/2021 12:00:00 AM EDT eCW1 ([facility]) Amitriptyline Hydrochloride 10 MG Oral Tablet 02/11/2021 12:00:00 A M EDT eCW1 ([facility]) Amitriptyline Hydrochloride 10 MG Oral Tablet 02/11/2021 12:00:00 A M EDT eCW1 ([facility]) Amitriptyline Hydrochloride 10 MG Oral Tablet 02/11/2021 12:00:00 A M EDT eCW1 ([facility]) Chantix Starting Month Frederic 0.5 MG X 11 & 1 MG X 42 02/11/2021 12 :00:00 AM EDT eCW1 ([facility]) Amitriptyline Hydrochloride 10 MG Oral Tablet 02/11/2021 12:00:00 A M EDT eCW1 ([facility]) Levothyroxine Sodium 0.1 MG Oral Tablet 12/10/2020 12:00:00 AM EDT eCW1 ([facility]) Levothyroxine Sodium 0.1 MG Oral Tablet 12/10/2020 12:00:00 AM EDT eCW1 ([facility]) Levothyroxine Sodium 0.1 MG Oral Tablet 12/10/2020 12:00:00 AM EDT eCW1 ([facility]) Levothyroxine Sodium 0.1 MG Oral Tablet 12/10/2020 12:00:00 AM EDT eCW1 ([facility]) Levothyroxine Sodium 0.1 MG Oral Tablet 12/10/2020 12:00:00 AM EDT eCW1 ([facility]) Levothyroxine Sodium 0.1 MG Oral Tablet 12/10/2020 12:00:00 AM EDT eCW1 ([facility]) Levothyroxine Sodium 0.1 MG Oral Tablet 12/10/2020 12:00:00 AM EDT eCW1 ([facility]) Tretinoin 1 MG/ML Topical Cream 09/10/2020 12:00:00 AM EST eCW1 ([facility]) Tretinoin 1 MG/ML Topical Cream 09/10/2020 12:00:00 AM EST eCW1 ([facility]) Tretinoin 1 MG/ML Topical Cream 09/10/2020 12:00:00 AM EST eCW1 ([facility]) Tretinoin 1 MG/ML Topical Cream 09/10/2020 12:00:00 AM EST eCW1 ([facility]) Tretinoin 1 MG/ML Topical Cream 09/10/2020 12:00:00 AM EST eCW1 ([facility]) Tretinoin 1 MG/ML Topical Cream 09/10/2020 12:00:00 AM EST eCW1 ([facility]) Tretinoin 0.0005 MG/MG Topical Gel 09/10/2020 12:00:00 AM EST eCW1 ([facility]) Clindamycin 0.01 MG/MG Topical Gel 09/10/2020 12:00:00 AM EST eCW1 ([facility]) Levothyroxine Sodium 0.088 MG Oral Tablet 07/30/2020 12:00:00 AM ES T eCW1 ([facility]) Levothyroxine Sodium 0.088 MG Oral Tablet 07/30/2020 12:00:00 AM ES T eCW1 ([facility]) Tretinoin 0.25 MG/ML Topical Cream 07/30/2020 12:00:00 AM EST eCW1 ([facility]) Levothyroxine Sodium 0.088 MG Oral Tablet 07/30/2020 12:00:00 AM ES T eCW1 ([facility]) Tretinoin 0.25 MG/ML Topical Cream 07/30/2020 12:00:00 AM EST eCW1 ([facility]) Levothyroxine Sodium 0.088 MG Oral Tablet 07/30/2020 12:00:00 AM ES T eCW1 ([facility]) Tretinoin 0.25 MG/ML Topical Cream 07/30/2020 12:00:00 AM EST eCW1 ([facility])
[2021-07-24 06:23] LABS: HCG, SERUM QUALITATIVE NEGATIVE (NEGATIVE)
[2021-07-24 06:25] LABS: ALBUMIN 3.8 GM/DL (3.2-5.2); ALT/SGPT 20 U/L (12-78); BILIRUBIN,DIRECT < 0.1 MG/DL (0.0-0.2); BILIRUBIN,TOTAL 0.2 MG/DL (0.2-1.0); BLOOD UREA NITROGEN 18 MG/DL (7-18); CALCIUM LEVEL 8.9 MG/DL (8.5-10.1); CARBON DIOXIDE LEVEL 27 MEQ/L (21-32); CHLORIDE LEVEL 109 MEQ/L (98-107); CREATININE FOR GFR 1.04 MG/DL (0.55-1.30); GLOMERULAR FILTRATION RATE > 60.0 (>60); GLUCOSE, FASTING 117 MG/DL (70-100); LIPASE 121 U/L (73-393); POTASSIUM SERUM 4.5 MEQ/L (3.5-5.1); SODIUM LEVEL 140 MEQ/L (136-145)
[2021-07-24] MEDS ORDERED: NS 1,000 ML IV ONE (07:35)
--- NOTE | 2021-07-24 09:16 | REP ---
INDICATION: L flank pain, urinary freq, h/o kidney stones. COMPARISON: CT abdomen pelvis without contrast 07/06/2013. TECHNIQUE: Multiple ultrasound images of the kidneys and urinary bladder were obtained. FINDINGS: The right kidney measures 10.3 x 4.9 x 3.7 cm in the left kidney measures 11.4 x 5.6 x 5.5 cm. There is a 3 mm stone in an interpolar calyx of the left kidney. There is no ureterolithiasis or hydronephrosis. The renal parenchymal echogenicity is normal. The urinary bladder is unremarkable. IMPRESSION: Left nephrolithiasis without obstruction. <Electronically signed by Adonis Lerma > 07/24/21 [id number]
[2021-07-24] MEDS ORDERED: KETO10TAB PO (09:48)
[2021-07-24] MEDS ORDERED: MACR100C43 PO (09:52)
[2021-07-24 09:59] VITALS: BP 126/61
== END 2021-07-24 10:02 | disposition home or self-care (01) ==
LOC: M ED 05:18
DX: N39.0 Urinary tract infection, site not specified (principal); N20.0 Calculus of kidney; R11.2 Nausea with vomiting, unspecified; E03.9 Hypothyroidism, unspecified; F17.200 Nicotine dependence, unspecified, uncomplicated; Z79.899 Other long term (current) drug therapy

== ENCOUNTER → 2021-08-16 | Outpatient (CLI) | payer BC ==
[~2021-08-16] MED LIST changes: +KETO10TAB PO; +MACR100C43 PO; +NOXI1TAB PO; +SPIR50TA4 PO; +SYNT100T PO
[2021-08-16 16:21] LABS: FREE T4 1.15 NG/DL (0.76-1.46); THYROID STIMULATING HORMONE 6.28 uIU/ML (0.358-3.740)
== END ==
LOC: M PLALAB 13:18
PROVIDERS: ATTEND Family Medicine
DX: E03.9 Hypothyroidism, unspecified (principal)

== ENCOUNTER → 2021-12-24 | Outpatient (REF) | payer BC ==
[2021-12-24 11:45] LABS: CALCIUM, 24 HOUR URINE 200.2 MG/24HR (42-353); CALCIUM, URINE 14.3 MG/DL
== END ==
LOC: M SFHCPLAZ 10:33
PROVIDERS: ATTEND Family Medicine
DX: N20.0 Calculus of kidney (principal)

== ENCOUNTER → 2022-03-03 | Outpatient (CLI) | payer BC | LOC: M PLALAB 11:29 | PROVIDERS: ATTEND Family Medicine | DX: E03.9 Hypothyroidism, unspecified (principal) ==

== ENCOUNTER → 2022-05-01 | Outpatient (CLI) | payer BC ==
[~2022-05-01] MED LIST changes: +CLAR10CA3 PO
== END ==
LOC: M LABSMTC 09:49
PROVIDERS: ATTEND Anesthesiology
DX: Z01.818 Encounter for other preprocedural examination (principal); Z11.52 Encounter for screening for COVID-19

== ENCOUNTER 2022-05-06 13:13 | Day surgery (SDC) | payer BC ==
[~2022-05-06] VITALS: Ht 162.6 cm; Wt 72.9 kg
[2022-05-06] MEDS ORDERED: MIDAZOLAM INJ 2MG/2ML VIAL (J2250 PER 1MG) As Ordered ONE (13:36)
[2022-05-06] MEDS ORDERED: LIDOCAINE 2% 100MG/5ML SDV (FOR ANES.) As Ordered ONE (13:36)
[2022-05-06] MEDS ORDERED: ONDANSETRON 4MG 2ML VIAL As Ordered ONE (13:36)
[2022-05-06] MEDS ORDERED: KETOROLAC 60MG 2ML VIAL As Ordered ONE (13:36)
[2022-05-06] MEDS ORDERED: dexameTHASONE 4 MG/ML 1ML VIAL (J1100 PER 1MG) As Ordered ONE (13:36)
[2022-05-06] MEDS ORDERED: propofoL 200 MG/20 ML VIAL As Ordered ONE (13:36)
[2022-05-06] MEDS ORDERED: fentaNYL 100 MCG/2 ML INJECTION As Ordered ONE (13:36)
[2022-05-06 13:41] LABS: HEMATOCRIT 45.9 % (36.0-47.0); HEMOGLOBIN 14.9 g/dl (12.0-15.5); MEAN CORPUSCULAR HEMOGLOBIN 28.4 pg (27.0-33.0); MEAN CORPUSCULAR HGB CONC 32.5 g/dl (32.0-36.5); MEAN CORPUSCULAR VOLUME 87.6 fl (80.0-96.0); PLATELET COUNT, AUTOMATED 352 10^3/uL (150-450); RED BLOOD COUNT 5.24 10^6/uL (4.00-5.40); WHITE BLOOD COUNT 9.1 10^3/uL (4.0-10.0)
[2022-05-06] MEDS ORDERED: LR 1,000 ML IV SCH ×2 (13:50→16:10)
[2022-05-06] MEDS ORDERED: LIDOCAINE 1% MDV 20ML VIAL As Ordered ONE (14:29)
[2022-05-06 15:10] VITALS: BP 118/75
[2022-05-06] MEDS ORDERED: ACETAMINOPHEN 500 MG TAB PO STA (15:18)
[2022-05-06] MEDS ORDERED: oxyCODONE 5MG TAB PO STA (15:57)
[2022-05-06] MEDS ORDERED: OXYC1TAB23 PO (16:07)
[2022-05-06] MEDS ORDERED: IBUP-1022 PO (16:07)
[2022-05-06] MEDS ORDERED: PERCOCET 5MG/325MG TAB PO PRN (16:10)
== END 2022-05-06 16:48 | disposition home or self-care (01) ==
LOC: M SDC 13:13
PROVIDERS: ATTEND Specialist
DX: N92.0 Excessive and frequent menstruation with regular cycle (principal); E03.9 Hypothyroidism, unspecified; K58.9 Irritable bowel syndrome, unspecified; E73.9 Lactose intolerance, unspecified; Z79.899 Other long term (current) drug therapy; F17.200 Nicotine dependence, unspecified, uncomplicated
CPT/HCPCS: 36415; 58563; 81025; 85027; 88305; J1100; J1885; J2250; J2405; J3010

== ENCOUNTER 2022-05-06 18:08 | Emergency (ER) | payer BC ==
[~2022-05-06] VITALS: Ht 167.6 cm; Wt 65.9 kg
[~2022-05-06 18:08] MED LIST changes: +IBUP-1022 PO; +OXYC1TAB23 PO
[2022-05-06] MEDS ORDERED: NS 1,000 ML IV ONE (18:30)
[2022-05-06] MEDS ORDERED: ONDANSETRON 4MG 2ML VIAL IV ONE (18:40)
[2022-05-06] MEDS ORDERED: MORPHINE 4 MG/ML 1ML VIAL/SYRINGE IV ONE (18:40)
[2022-05-06] MEDS ORDERED: ISOVUE-370 76% 100ML VIAL As Ordered ONE (18:45)
[2022-05-06 18:46] LABS: BASO # 0.1 10^3/uL (0.0-0.2); BASO % 0.3 % (0.0-1.0); EOS % 0.2 % (0.0-3.0); HEMATOCRIT 42.8 % (36.0-47.0); HEMOGLOBIN 14.4 g/dl (12.0-15.5); LYMPH # 1.2 10^3/uL (1.5-5.0); LYMPH % 7.6 % (24.0-44.0); MEAN CORPUSCULAR HEMOGLOBIN 28.9 pg (27.0-33.0); MEAN CORPUSCULAR HGB CONC 33.6 g/dl (32.0-36.5); MEAN CORPUSCULAR VOLUME 85.8 fl (80.0-96.0); MONO # 0.1 10^3/uL (0.0-0.8); MONO % 0.6 % (2.0-8.0); NEUTROPHILS # 14.9 10^3/uL (1.5-8.5); PLATELET COUNT, AUTOMATED 335 10^3/uL (150-450); RED BLOOD COUNT 4.99 10^6/uL (4.00-5.40); WHITE BLOOD COUNT 16.4 10^3/uL (4.0-10.0)
[2022-05-06 19:03] LABS: INR 0.99; PROTHROMBIN TIME 13.5 SECONDS (12.7-14.5)
[2022-05-06 19:04] LABS: PARTIAL THROMBOPLASTIN TIME 31.9 SECONDS (25.9-37.0)
[2022-05-06] MEDS ORDERED: KETOROLAC 30 MG/ML 1ML VIAL IV ONE (19:20)
[2022-05-06 19:24] LABS: ALBUMIN 3.9 GM/DL (3.2-5.2); ALT/SGPT 19 U/L (12-78); BILIRUBIN,DIRECT 0.1 MG/DL (0.0-0.2); BILIRUBIN,TOTAL 0.3 MG/DL (0.2-1.0); BLOOD UREA NITROGEN 15 MG/DL (7-18); CALCIUM LEVEL 9.2 MG/DL (8.5-10.1); CARBON DIOXIDE LEVEL 25 MEQ/L (21-32); CHLORIDE LEVEL 105 MEQ/L (98-107); CREATININE FOR GFR 0.93 MG/DL (0.55-1.30); GLOMERULAR FILTRATION RATE > 60.0 (>60); GLUCOSE, FASTING 129 MG/DL (70-100); POTASSIUM SERUM 3.9 MEQ/L (3.5-5.1); SODIUM LEVEL 139 MEQ/L (136-145); TOTAL PROTEIN 7.2 GM/DL (6.4-8.2)
[2022-05-06] MEDS ORDERED: MORPHINE 4 MG/ML 1ML VIAL/SYRINGE IV PRN (22:00)
[2022-05-06 22:05] VITALS: BP 158/68
== END 2022-05-06 22:33 | disposition home or self-care (01) ==
LOC: M ED 18:08
DX: R10.9 Unspecified abdominal pain (principal); G89.18 Other acute postprocedural pain; J45.909 Unspecified asthma, uncomplicated; E03.9 Hypothyroidism, unspecified; Z79.899 Other long term (current) drug therapy
CPT/HCPCS: 74177; 80048; 80076; 85025; 85610; 85730; 86850; 86900; 86901; 93041; 94760; 96361; 96374; 96375; 96376; 99284; J1885; J2270; J2405; Q9967

== ENCOUNTER → 2022-09-06 | Outpatient (CLI) | payer BC ==
[2022-09-06 13:03] LABS: THYROID STIMULATING HORMONE 2.02 uIU/ML (0.55-4.78)
[2022-09-06 13:04] LABS: FREE T4 1.61 NG/DL (0.89-1.76)
== END ==
LOC: M PLALAB 11:18
PROVIDERS: ATTEND Physician Assistant
DX: E03.9 Hypothyroidism, unspecified (principal)

== ENCOUNTER → 2023-04-24 | Outpatient (CLI) | payer BC ==
[2023-04-24 14:51] LABS: BASO # 0.1 10^3/uL (0.0-0.2); BASO % 0.8 % (0.0-1.0); EOS # 0.4 10^3/uL (0.0-0.5); HEMATOCRIT 43.2 % (36.0-47.0); HEMOGLOBIN 14.2 g/dl (12.0-15.5); LYMPH # 1.7 10^3/uL (1.5-5.0); LYMPH % 23.2 % (24.0-44.0); MEAN CORPUSCULAR HEMOGLOBIN 28.7 pg (27.0-33.0); MEAN CORPUSCULAR HGB CONC 32.9 g/dl (32.0-36.5); MEAN CORPUSCULAR VOLUME 87.3 fl (80.0-96.0); MONO # 0.6 10^3/uL (0.0-0.8); MONO % 7.5 % (2.0-8.0); NEUTROPHILS # 4.7 10^3/uL (1.5-8.5); NEUTROPHILS % 63.2 % (36.0-66.0); PLATELET COUNT, AUTOMATED 318 10^3/uL (150-450); RED BLOOD COUNT 4.95 10^6/uL (4.00-5.40); WHITE BLOOD COUNT 7.4 10^3/uL (4.0-10.0)
[2023-04-24 15:19] LABS: ALBUMIN 4.1 G/DL (3.2-5.2); ALKALINE PHOSPHATASE 68 U/L (46-116); ALT/SGPT 19 U/L (7.0-40); AST/SGOT 12 U/L (<34); BILIRUBIN,TOTAL 0.3 MG/DL (0.3-1.2); BLOOD UREA NITROGEN 14 MG/DL (9-23); CALCIUM LEVEL 9.8 MG/DL (8.5-10.1); CARBON DIOXIDE LEVEL 28 MMOL/L (20-31); CHLORIDE LEVEL 102 MMOL/L (98-107); CREATININE FOR GFR 0.78 MG/DL (0.55-1.30); GLOMERULAR FILTRATION RATE > 60.0 (>60); GLUCOSE, FASTING 84 MG/DL (60-100); POTASSIUM SERUM 4.2 MMOL/L (3.5-5.1); SODIUM LEVEL 140 MMOL/L (136-145)
[2023-04-24 15:20] LABS: FREE T4 1.25 NG/DL (0.89-1.76)
[2023-04-24 15:21] LABS: THYROID STIMULATING HORMONE 2.465 uIU/ML (0.55-4.78); TOTAL 25(OH) VITAMIN D 50.6 NG/ML (20.0-100.0)
== END ==
LOC: M PLALAB 12:45
PROVIDERS: ATTEND Physician Assistant
DX: F41.9 Anxiety disorder, unspecified (principal); E03.9 Hypothyroidism, unspecified; E55.9 Vitamin D deficiency, unspecified; N92.6 Irregular menstruation, unspecified

== ENCOUNTER → 2024-01-24 | Outpatient (CLI) | payer BC ==
[2024-01-24 13:24] LABS: ALBUMIN 3.8 G/DL (3.2-5.2); ALKALINE PHOSPHATASE 66 U/L (46-116); ALT/SGPT 27 U/L (7.0-40); AST/SGOT 14 U/L (<34); BILIRUBIN,TOTAL 0.4 MG/DL (0.3-1.2); BLOOD UREA NITROGEN 11 MG/DL (9-23); CALCIUM LEVEL 9.1 MG/DL (8.5-10.1); CARBON DIOXIDE LEVEL 29 MMOL/L (20-31); CHLORIDE LEVEL 104 MMOL/L (98-107); CREATININE FOR GFR 0.88 MG/DL (0.55-1.30); GLOMERULAR FILTRATION RATE > 60.0 (>60); GLUCOSE, FASTING 97 MG/DL (60-100); IRON (FE) 89 UG/DL (50-170); PERCENT SATURATION 27.6 % (13.2-45.0); POTASSIUM SERUM 4.4 MMOL/L (3.5-5.1); SODIUM LEVEL 138 MMOL/L (136-145); TOTAL IRON BINDING CAPACITY 323 UG/DL (250-425); TOTAL PROTEIN 6.6 G/DL (5.7-8.2)
[2024-01-24 13:29] LABS: FREE T4 1.03 NG/DL (0.89-1.76)
[2024-01-24 13:30] LABS: FERRITIN 36.6 NG/ML (7.3-270.7)
[2024-01-24 13:31] LABS: BASO % 0.5 % (0.0-1.0); EOS # 0.2 10^3/uL (0.0-0.5); EOS % 2.7 % (0.0-3.0); HEMATOCRIT 41.9 % (36.0-47.0); HEMOGLOBIN 13.8 g/dl (12.0-15.5); LYMPH # 1.8 10^3/uL (1.5-5.0); LYMPH % 21.5 % (24.0-44.0); MEAN CORPUSCULAR HEMOGLOBIN 29.1 pg (27.0-33.0); MEAN CORPUSCULAR HGB CONC 32.9 g/dl (32.0-36.5); MEAN CORPUSCULAR VOLUME 88.2 fl (80.0-96.0); MONO # 0.6 10^3/uL (0.0-0.8); MONO % 7.6 % (2.0-8.0); NEUTROPHILS # 5.7 10^3/uL (1.5-8.5); NEUTROPHILS % 67.5 % (36.0-66.0); PLATELET COUNT, AUTOMATED 339 10^3/uL (150-450); RED BLOOD COUNT 4.75 10^6/uL (4.00-5.40); WHITE BLOOD COUNT 8.4 10^3/uL (4.0-10.0)
[2024-01-24 13:49] LABS: THYROID STIMULATING HORMONE 9.124 uIU/ML (0.55-4.78); VITAMIN B12 LEVEL 463 PG/ML (211-911)
== END ==
LOC: M PLALAB 08:41
PROVIDERS: ATTEND Physician Assistant
DX: R53.83 Other fatigue (principal); E03.9 Hypothyroidism, unspecified; E55.9 Vitamin D deficiency, unspecified; N92.1 Excessive and frequent menstruation with irregular cycle

== ENCOUNTER → 2024-03-29 | Outpatient (CLI) | payer BC ==
[2024-03-29 13:39] LABS: FREE T4 1.3 NG/DL (0.89-1.76)
[2024-03-29 13:40] LABS: THYROID STIMULATING HORMONE 2.212 uIU/ML (0.55-4.78)
== END ==
LOC: M PLALAB 10:32
PROVIDERS: ATTEND Physician Assistant
DX: E03.9 Hypothyroidism, unspecified (principal)

== ENCOUNTER → 2024-04-03 | Outpatient (CLI) | payer BC ==
[2024-04-03 14:59] LABS: C REACTIVE PROTEIN QUANTITATIV < 0.40 MG/DL (<1.0)
[2024-04-03 15:19] LABS: THYROID PEROXIDASE ANTIBODY 791 U/ML (<60.0)
[2024-04-03 15:29] LABS: HIV 1&2 SCREEN NEGATIVE (NEGATIVE)
[2024-04-04 12:32] LABS: CYCLIC CITRULLINATED PEPTIDE < 16 UNITS (<20)
[2024-04-04 14:06] LABS: RHEUMATOID FACTOR QUANT < 3.5 IU/ML (<14)
[2024-04-04 15:23] LABS: ANA SCREEN, IFA NEGATIVE (NEGATIVE)
[2024-04-05 01:47] LABS: IgG P18 AB NON-REACTIVE; IgG P23 AB NON-REACTIVE; IgG P28 AB NON-REACTIVE; IgG P30 AB NON-REACTIVE; IgG P39 AB NON-REACTIVE; IgG P41 AB NON-REACTIVE; IgG P45 AB NON-REACTIVE; IgG P58 AB NON-REACTIVE; IgG P66 AB NON-REACTIVE; IgG P93 AB NON-REACTIVE; IgM P23 AB REACTIVE; IgM P39 AB NON-REACTIVE; IgM P41 AB NON-REACTIVE; LYME IgG WB INTERPRETATION NEGATIVE (NEGATIVE); LYME IgM WB INTERPRETATION NEGATIVE (NEGATIVE)
== END ==
LOC: M PLAIMG 10:57
PROVIDERS: ATTEND Physician Assistant
DX: M25.532 Pain in left wrist (principal); L70.0 Acne vulgaris

== ENCOUNTER → 2024-10-08 | Outpatient (CLI) | payer BC | LOC: M LAB 09:03 | PROVIDERS: ATTEND Nurse Practitioner Family | DX: R19.5 Other fecal abnormalities (principal) ==

== ENCOUNTER → 2024-11-19 | Outpatient (CLI) | payer BC ==
[~2024-11-19] MED LIST changes: +E-Z-GAS II EFFERVESCENT PACKET (SODIUM BICARB./CITRIC ACID/SIMETHICONE) As Ordered ONE; +E-Z-HD 98% w/w 340GM SUSP BTL As Ordered ONE; +E-Z-PAQUE 96% w/w SUSP 176GM BTL As Ordered ONE
== END ==
LOC: M RAD 08:11
PROVIDERS: ATTEND Nurse Practitioner Family
DX: R10.12 Left upper quadrant pain (principal); R05.9 Cough, unspecified

== ENCOUNTER → 2025-08-08 | Outpatient (REF) | payer BC ==
[~2025-08-08] MED LIST changes: -E-Z-GAS II EFFERVESCENT PACKET (SODIUM BICARB./CITRIC ACID/SIMETHICONE) As Ordered ONE; -E-Z-HD 98% w/w 340GM SUSP BTL As Ordered ONE; -E-Z-PAQUE 96% w/w SUSP 176GM BTL As Ordered ONE; -IBUP-1022 PO; +IBUP600T42 PO
== END ==
LOC: M SFHCPLAZ 12:42
PROVIDERS: ATTEND Family Medicine
DX: E03.9 Hypothyroidism, unspecified (principal)

== ENCOUNTER → 2025-08-12 | Outpatient (CLI) | payer BC ==
[2025-08-12 16:01] LABS: FREE T4 1.41 NG/DL (0.89-1.76)
== END ==
LOC: M PLALAB 14:23
PROVIDERS: ATTEND Family Medicine
DX: E03.9 Hypothyroidism, unspecified (principal)

== ENCOUNTER → 2025-09-10 | Outpatient (CLI) | payer SELFPAY ==
[2025-09-10 17:47] LABS: CALCIUM LEVEL 9.7 MG/DL (8.5-10.1); CARBON DIOXIDE LEVEL 30 MMOL/L (20-31); CHLORIDE LEVEL 102 MMOL/L (98-107); CREATININE FOR GFR 0.78 MG/DL (0.55-1.30); GLOMERULAR FILTRATION RATE > 90.0 (>60); POTASSIUM SERUM 4.1 MMOL/L (3.5-5.1); SODIUM LEVEL 143 MMOL/L (136-145)
[2025-09-10 17:48] LABS: LUTEINIZING HORMONE 18.8 mIU/ML; PROLACTIN 6.34 NG/ML
[2025-09-17 22:43] LABS: ESTROGENS TOTAL 107.0 pg/mL
[2025-09-21 13:52] LABS: TESTOSTERONE FREE (DIRECT) 2.9 pg/mL (0.1-6.4); TESTOSTERONE TOTAL FOR T&D 33.0 ng/dL (2-45)
[2025-09-21 22:35] LABS: 17 HYDROXY PROGESTERONE 122.0 ng/dL; SEX HORMONE BINDING GLOBULIN 43.0 nmol/L (17-124)
== END ==
LOC: M PLALAB 15:35
PROVIDERS: ATTEND Physician Assistant
DX: N91.2 Amenorrhea, unspecified (principal)